=== PATIENT | female | born 1960 | race Caucasian/White ===

== ENCOUNTER 2023-09-15 16:37 | Inpatient (IN) | payer OTHER, SELFPAY ==
[2023-09-15] VITALS (7 sets, daily range): BP systolic 122–173; BP diastolic 48–87; BMI 29.9
[2023-09-15 13:45] LABS: % Basophils 0.6 % (0-2); % Eosinophils 4.3 % (0-6); % Immature Granulocytes 0.2 % (0-0.5); % Lymphocytes 36.2 % (20.5-51.1); % Monocytes 7.1 % (1.7-9.3); % Neutrophils 51.6 % (42.2-75.2); Absolute Basophils 0.1 10^3/uL (0-0.2); Absolute Eosinophils 0.4 10^3/uL (0-0.7); Absolute Lymphocytes 3.5 10^3/uL (1.2-3.4); Absolute Monocytes 0.7 10^3/uL (0.1-0.6); Absolute Neutrophils 4.9 10^3/uL (1.4-6.5); Hematocrit 39.7 % (37.0-47.0); Hemoglobin 13.3 g/dL (12.0-16.0); Mean Corp Hgb Conc. 33.5 g/dL (33.0-37.0); Mean Corpuscular Hgb 29.8 pg (27.0-31.0); Mean Platelet Volume 9.4 fL (7.4-10.4); Nucleated Red Blood Cells % 0 %; Platelet Count 349 10^3/uL (130-400); Red Blood Cell Count 4.46 10^6/uL (4.20-5.40); Red Cell Dist. Width 13.5 % (11.5-14.5); White Blood Cell Count 9.5 10^3/uL (4.8-10.8)
[2023-09-15 13:55] LABS: ALT (SGPT) 20 U/L (0-35); AST (SGOT) 17 U/L (14-36); Albumin 3.7 g/dl (3.5-5.0); Alkaline Phosphatase 96 U/L (38-126); Blood Urea Nitrogen 57 mg/dl (7-17); Calcium 9.9 mg/dl (8.4-10.2); Carbon Dioxide 16 mmol/L (22-30); Chloride 110 mmol/L (98-107); Glucose 178 mg/dl (70-99); Potassium 4.4 mmol/L (3.5-5.1); Sodium 140 mmol/L (135-145); Total Bilirubin 0.7 mg/dl (0.2-1.3); Total Protein 6.5 g/dl (6.3-8.2); eGFR 17.04
[2023-09-15] MEDS: ATIVAN 1 MG IV (13:59)
--- NOTE | 2023-09-15 14:12 | ED.GENMED ---
History of Present Illness
<Iveth Hinton PA-C - Last Filed: 09/27/23 16:34>
General
Chief Complaint: Weakness
Source: patient
Exam Limitations: clinical condition
Time Seen by Provider: 09/15/23 13:24
Nursing documentation reviewed up to this point in time: agreed with
Travel History
Have you had any contact with someone who has COVID-19?: No
Do you have any symptoms of coronavirus? Fever > 100 degrees, chills, cough, shortness of breath, sore throat, loss of taste or smell, muscle aches, or headache?: No
History of Present Illness
History of Present Illness:
Patient is a 63 y.o female with history CVA presenting via ems from home. She is presenting due to feeling 'pulsations' throughout her entire body and believes that she is having a stroke. She called EMS so she could be treated with tPA. Patient is
extremely agitated upon arrival. She denies any focal weakness, headache, changes in speech or vision.
She did have a CVA in the past year and was treated with tPA. She does have some weakness on left side from this previous CVA which is unchanged today.
History and exam very limited due to mental status.
Past History
<Iveth Hinton PA-C - Last Filed: 09/27/23 16:34>
Past History
ED Past Medical History: CVA (Right pontine July 2022), HTN, IDDM and Other (Endometriosis)
ED Past Surgical History: Gynecological (Several laparoscopies for endometriosis, hysterectomy has 1 ovary remaining.)
Social History
Tobacco: Smoker
Alcohol: Former
Drug: None
Personal: Partner
Living: with family
Employment: Not employed
Family History
Family History: Other (Reviewed and noncontributory)
Phy Exam
<Iveth Hinton PA-C - Last Filed: 09/27/23 16:34>
Physical Exam
Physical Exam:
General: Anxious and agitated, non-toxic
HEENT: Pupils equal round and reactive to light bilaterally, protecting airway
Neck: appears supple
CV: No evidence of cyanosis
Resp: No accessory muscle use
Abd: Non-distended
Extremities: No deformities, moving all extremities spontaneously
Neuro: alert, speech normal without any noticeable slurring, no focal weakness
Psych: Appears very anxious and agitated
Skin: Intact
Course
<Iveth Hinton PA-C - Last Filed: 09/27/23 16:34>
Orders/Labs/Results
Orders:
Orders
09/15/23 13:33
CMP [Comprehensive Metabolic Panel] Urgent
Complete Blood Count/With Diff Urgent
TSH Reflex To Free T4 Urgent
Comment: ADD ON
09/15/23 13:49
Lorazepam [Ativan] 1 mg IV NOW STA
09/15/23 13:50
Electrocardiogram (*1) Urgent
Reason for Study: Fatigue / Weakness
CT Head W/o Iv Contrast Urgent
Comment:
Reason For Exam: weakness prior right pontomedullary infarct
EKG- Treatment ONCE
09/15/23 15:05
0.9% Sodium Chloride 1000 ml [Nss] 1,000 ml IV BOLUS
09/15/23 15:52
Add On- LAB Urgent
Tests Added?: TSH w/ reflex to T4
09/15/23 16:13
Admit/Transfer Patient As Directed
Co-Sign Provider:
Level of Care: Inpatient admission
Assign to:: Medical/Surgical
Physician / Group: braeden gould
Diagnosis: metabolic encephalopathy
Reason for Hospitalization: metabolic encephalopathy
Expected length of stay greater than two midnights?: Yes
ELOS- Estimated Length of Stay in days: 3
I certify the patient meets the requirements for IP care: Yes
09/15/23 16:15
Code Status As Directed
Resuscitation Status: Full Code
09/15/23 16:26
Abdomen/Pelvis wo Contrast CT [CT Abd/pelvis Wo Iv Cont] Urgent
Comment: no IV or oral
Reason For Exam: PAULO, weakness and pain
09/15/23 17:11
0.45% Sodium Chloride 1000 ml [0.45%NaCl] 1,000 ml Sodium Bicarbonate 75 meq IV 100 mls/hr
Acetaminophen [Tylenol] 650 mg PO Q4HPRN PRN
Dextrose 50%-Water [Dextrose 50% Syringe] 12.5 grams IV [id number] PRN
Glucagon [GlucaGen] 1 mg IM PRN PRN
Insulin Aspart Corrective Low [Novolog Flexpen-Low Resistance] See Protocol SC AC
Nicotine [Nicoderm Transdermal] 21 mg TRANSDERM DAILY
09/15/23 17:11
Activity As Directed
Activity Level: As Tolerated
Bedside Glucose Monitoring As Directed
Frequency: AC&HS
Comment: Change to q6h if pt on TPN, tube feeding or not eating
Vital Signs As Directed
Frequency: Per unit guidelines
DX Deep Vein Thrombosis Video Routine
09/15/23 17:35
COVID-19 Antigen Routine
Source: Nasal Swab
Influenza A+B Rapid Molecular Routine
NORMA Source: Nasal Swab
Specimen Description:
09/15/23 18:30
Drug Screen, Urine [Urine Drug Abuse Screen] Urgent
Date Specimen was Collected: 09/15/23
Time Specimen was Collected: 18:29
Urinalysis Reflex To Culture Routine
Date Specimen was Collected: 09/15/23
Time Specimen was Collected: 18:29
Urine Creatinine Routine
Date Specimen was Collected: 09/15/23
Time Specimen was Collected: 18:29
Urine Sodium Routine
Date Specimen was Collected: 09/15/23
Time Specimen was Collected: 18:29
09/15/23 20:00
Heparin 5,000 units SC Q12
09/15/23 22:00
Atorvastatin [Lipitor] 40 mg PO HS
Ropinirole [Requip] 0.25 mg PO TID
09/16/23 Breakfast
NPO
Allow oral meds: No
Allow clear liquids: No
Occupational Therapy Consult [Ot Eval And Treat] IN AM
Physical Therapy Consult [Pt Eval And Treat] IN AM
Activity Level: As Tolerated
09/16/23 06:28
Basic Metabolic Panel IN AM
Complete Blood Count/No Diff IN AM
Glycohemoglobin (HgbA1c) IN AM
09/16/23 08:00
Amlodipine [Norvasc] 5 mg PO DAILY
Escitalopram Oxalate [Lexapro] 20 mg PO DAILY
09/17/23 07:22
Basic Metabolic Panel IN AM
Complete Blood Count/No Diff IN AM
09/18/23 07:21
Basic Metabolic Panel IN AM
09/19/23 05:54
Basic Metabolic Panel IN AM
09/20/23 06:10
Basic Metabolic Panel IN AM
Abnormal Lab Results
09/15/23
13:33
Absolute Lymphs (auto) 3.5 H 10^3/uL
(1.2-3.4)
Absolute Monos (auto) 0.7 H 10^3/uL
(0.1-0.6)
Chloride 110 H mmol/L
(98-107)
Carbon Dioxide 16 L mmol/L
(22-30)
BUN 57 H mg/dl
(7-17)
Creatinine 3.0 H mg/dL
(0.6-1.0)
Glucose 178 H mg/dl
(70-99)
09/15/23 13:33
09/15/23 13:33
Vital Signs
Initial and Last Documented VS:
Initial Vital Signs
BP
122/78
09/15/23 13:24
Last Documented Vital Signs
Temp Pulse Resp BP Pulse Ox
97.6 F 69 20 167/95 100
09/20/23 07:25 09/20/23 07:46 09/20/23 07:25 09/20/23 07:46 09/20/23 07:25
<Sherif Coyne, DO - Last Filed: 09/15/23 15:54>
Orders/Labs/Results
Orders:
Orders
09/15/23 13:33
CMP [Comprehensive Metabolic Panel] Urgent
Complete Blood Count/With Diff Urgent
TSH Reflex To Free T4 Urgent
Comment: ADD ON
09/15/23 13:49
Lorazepam [Ativan] 1 mg IV NOW STA
09/15/23 13:50
Electrocardiogram (*1) Urgent
Reason for Study: Fatigue / Weakness
CT Head W/o Iv Contrast Urgent
Comment:
Reason For Exam: weakness prior right pontomedullary infarct
EKG- Treatment ONCE
09/15/23 15:05
0.9% Sodium Chloride 1000 ml [Nss] 1,000 ml IV BOLUS
09/15/23 15:52
Add On- LAB Urgent
Tests Added?: TSH w/ reflex to T4
09/15/23 16:13
Admit/Transfer Patient As Directed
Co-Sign Provider:
Level of Care: Inpatient admission
Assign to:: Medical/Surgical
Physician / Group: braeden gould
Diagnosis: metabolic encephalopathy
Reason for Hospitalization: metabolic encephalopathy
Expected length of stay greater than two midnights?: Yes
ELOS- Estimated Length of Stay in days: 3
I certify the patient meets the requirements for IP care: Yes
09/15/23 16:15
Code Status As Directed
Resuscitation Status: Full Code
09/15/23 16:26
Abdomen/Pelvis wo Contrast CT [CT Abd/pelvis Wo Iv Cont] Urgent
Comment: no IV or oral
Reason For Exam: PAULO, weakness and pain
09/15/23 17:11
0.45% Sodium Chloride 1000 ml [0.45%NaCl] 1,000 ml Sodium Bicarbonate 75 meq IV 100 mls/hr
Acetaminophen [Tylenol] 650 mg PO Q4HPRN PRN
Dextrose 50%-Water [Dextrose 50% Syringe] 12.5 grams IV [id number] PRN
Glucagon [GlucaGen] 1 mg IM PRN PRN
Insulin Aspart Corrective Low [Novolog Flexpen-Low Resistance] See Protocol SC AC
Nicotine [Nicoderm Transdermal] 21 mg TRANSDERM DAILY
09/15/23 17:11
Activity As Directed
Activity Level: As Tolerated
Bedside Glucose Monitoring As Directed
Frequency: AC&HS
Comment: Change to q6h if pt on TPN, tube feeding or not eating
Vital Signs As Directed
Frequency: Per unit guidelines
DX Deep Vein Thrombosis Video Routine
09/15/23 17:35
COVID-19 Antigen Routine
Source: Nasal Swab
Influenza A+B Rapid Molecular Routine
NORMA Source: Nasal Swab
Specimen Description:
09/15/23 18:30
Drug Screen, Urine [Urine Drug Abuse Screen] Urgent
Date Specimen was Collected: 09/15/23
Time Specimen was Collected: 18:29
Urinalysis Reflex To Culture Routine
Date Specimen was Collected: 09/15/23
Time Specimen was Collected: 18:29
Urine Creatinine Routine
Date Specimen was Collected: 09/15/23
Time Specimen was Collected: 18:29
Urine Sodium Routine
Date Specimen was Collected: 09/15/23
Time Specimen was Collected: 18:29
09/15/23 20:00
Heparin 5,000 units SC Q12
09/15/23 22:00
Atorvastatin [Lipitor] 40 mg PO HS
Ropinirole [Requip] 0.25 mg PO TID
09/16/23 Breakfast
NPO
Allow oral meds: No
Allow clear liquids: No
Occupational Therapy Consult [Ot Eval And Treat] IN AM
Physical Therapy Consult [Pt Eval And Treat] IN AM
Activity Level: As Tolerated
09/16/23 06:28
Basic Metabolic Panel IN AM
Complete Blood Count/No Diff IN AM
Glycohemoglobin (HgbA1c) IN AM
09/16/23 08:00
Amlodipine [Norvasc] 5 mg PO DAILY
Escitalopram Oxalate [Lexapro] 20 mg PO DAILY
09/17/23 07:22
Basic Metabolic Panel IN AM
Complete Blood Count/No Diff IN AM
09/18/23 07:21
Basic Metabolic Panel IN AM
09/19/23 05:54
Basic Metabolic Panel IN AM
09/20/23 06:10
Basic Metabolic Panel IN AM
Abnormal Lab Results
09/15/23
13:33
Absolute Lymphs (auto) 3.5 H 10^3/uL
(1.2-3.4)
Absolute Monos (auto) 0.7 H 10^3/uL
(0.1-0.6)
Chloride 110 H mmol/L
(98-107)
Carbon Dioxide 16 L mmol/L
(22-30)
BUN 57 H mg/dl
(7-17)
Creatinine 3.0 H mg/dL
(0.6-1.0)
Glucose 178 H mg/dl
(70-99)
09/15/23 13:33
09/15/23 13:33
Vital Signs
Initial and Last Documented VS:
Initial Vital Signs
BP
122/78
09/15/23 13:24
Last Documented Vital Signs
Temp Pulse Resp BP Pulse Ox
97.6 F 69 20 167/95 100
09/20/23 07:25 09/20/23 07:46 09/20/23 07:25 09/20/23 07:46 09/20/23 07:25
<Iveth Hinton PA-C - Last Filed: 09/27/23 16:34>
MDM/Problems Addressed
Differential Diagnosis Includes:
UTI, toxic encephalopathy, polypharmacy
MDM/Problems Addressed:
Patient is a 63 year old female presenting via ems with 'pulsations' throughout her body and concern that she is having a stroke. No focal weakness, changes in vision, speech, or headache. She is very agitated and anxious upon arrival. History and
physical difficult to obtain due to mental status. Her vital signs are stable. Physical exam as documented above. Given difficulty with exam - will check basic labs, UA, CT head.
CT shows no evidence of acute abnormality. Labs show new onset renal failure and acidosis. Will start IVF and admit to hospitalist for further management.
Chronic conditions affecting care:
previous CVA, HTN, DM
Acute Exacerbation and/or Progression of Chronic Illness:
N/A
<Iveth Hinton PA-C - Last Filed: 09/27/23 16:34>
*Radiology
Radiology exam reviewed: radiology read reviewed
*Pulse Oximetry
Patient hypoxic: no
*Program Manager Rn Interpretation
Rate: Program Manager Rn- N/A
*Critical Care Note
Total Time (30-74mins, 75-104mins- exclusive of procedures): Not Applicable
Data Reviewed
Review of Other/Old Records Reveals: Labs, Records and Discharge Summary
Source: records
<Iveth Hinton PA-C - Last Filed: 09/27/23 16:34>
Patient Management
Discussion with other providers: Hospitalist
ED Attending Note
<Iveth Hinton PA-C - Last Filed: 09/27/23 16:34>
-
Portions of this chart may have been created with voice recognition software.� Occasional wrong word or��sound alike� substitutions may have occurred due to the inherent limitations of voice recognition software.
<Sherif Coyne DO - Last Filed: 09/15/23 15:54>
ED Attending Note
Patient seen and examined by attending physician: Yes
I performed the substantive portion of visit, reviewed & personally made and approve the management plan that is documented in note by myself or GINA.: Yes
ED Attending Note:
Patient is a 63-year-old female with a history of CVA as well as diabetes and anxiety and depression who presents to the emergency department feeling pulsations going through body and wanting tPA to be given for her impending stroke. Patient denies
focal weakness or change in vision or speech. Patient is a difficult assessment doing to her mental status. Patient keeps insisting that she is having a stroke and wanting tPA. Patient in the past year did have tPA given for CVA. Patient has
persistent cyst from this with left-sided weakness from that. Patient neurologically is unchanged. Patient's labs show new onset of renal failure. Additionally patient appears acidotic by lab. Patiently given fluids and admitted. Patient
required Ativan for thorough evaluation.
Discharge Plan
Departure
Patient Disposition: Admit
Date of Disposition: 09/15/23
Time of Disposition: 15:42
Presentation/result/management discussed w/ accepting MD/DO: Hospitalist
Discharge Problem:
PAULO (acute kidney injury), Altered mental status
Interventions
Interventions:
*Risk Screen - Suicide Last Done: 09/15/23 18:06
*General Assessment Last Done: 09/15/23 13:27
*Neglect/Abuse Screening Last Done: 09/15/23 13:27
ED- Fall Risk Assessment Last Done: 09/15/23 17:06
*ED COVID-19 Vaccine History Last Done: 09/15/23 18:06
*Nursing Disposition Last Done: 09/15/23 17:06
ED- Cardiac Assessment Last Done: 09/15/23 13:30
ED- Neurological Assessment Last Done: 09/15/23 13:30
ED- Pulmonary Assessment Last Done: 09/15/23 13:30
Discharge Date and Time
Discharge Date/Time: 09/15/23 17:10
[2023-09-15] MEDS: NSS 1000 IV (15:13)
--- NOTE | 2023-09-15 15:53 | HPS.HSE ---
Addendum entered and electronically signed by Brenda Amanda MD 09/15/23 16:36:
I saw and examined the patient.
The BODY SHOP FLOORPERSON's note was reviewed and I agree with the note.
Comment:
Ms. Gertrudis Gonzales is a 63 yo woman with hx acute right pontine ischemic stroke 08/18 with residual left sided weakness, HTN, IDDM who presents to the ER agitated. Patient is currently sedated after receiving 1mg IV ativan and not able to provide
further history. 's cell phone number goes to [employer]. Patient was brought in by EMS who were called because patient stated she was very weak and had pain all over. Triage VS: P 84, RR 20, BP 122/78, SpO2 98%. Labs with WBC 9.5, Hg
13.3, Na 140, K+ 4.4, CO2 16, Cr 3.0, Glucose 178. Head CT without acute event. Per [employer] ABATEMENT WORKER, patient was seen walking around her room in the ER and banged on her door. She then stated she was too weak to get back to bed. She was becoming
increasingly agitated, yelling at staff. She was given 1mg IV Ativan and is now sleeping. Patient heavily sedated and difficult to arouse in the ER. Tried calling but phone number goes to busy signal.
Unclear etiology of initial presentation of pain, weakness and acute renal failure. Will check for flu and covid. Will obtain non con CT A/P. Awaiting UA, UTox, urine studies. For ARF will give IVF with sodium bicarb, hold [employer] lisinopril and
metformin.
Regarding altered mentation, this is in setting of 1mg IV ativan. Will keep NPO until ativan wears off. Will hold home sedating medications. Admit with neuro checks.
Hep subQ for DVT PPx
FULL CODE
Original Note:
Family Physician
-
Family Physician: NOT KNOW UNKNOWN - PT DOES
Chief Complaint
-
agitated
confusion
History of Present Illness
�63 y.o female with history CVA, anxiety, htn, DM presented to us with confusion. patient is sleeping, not able to answer appropriately. attempted to reach , number not going through. ROS limited. as per [employer] ABATEMENT WORKER, stated her legs are very weak.
she was yelling and screaming
CT head negative. noted elevated cr in ER. giving normal saline. admitting for further mangament.
Medical History
Past Medical History
Past Medical History: Reports Other
Additional Past Medical History:
Depression anxiety
CVA
Hypertension
Type 2 diabetes
Endometriosis
Past Surgical History: Reports Other
Additional Past Surgical History:
Hysterectomy
Social History
Unable to obtain full social history at this time due to: Acuity
Family History
Family History: Not pertinent
Allergies / Home Medications
Allergies reflects when Allergies were last updated in [employer].
Home Medications with original date entered in [employer]
Allergy/Medication List:
Allergies
Allergy/AdvReac Type Severity Reaction Status Date / Time
'all antibiotics' Allergy Unknown Uncoded 01/31/23 08:44
Home Medications
acetaminophen 325 mg tablet 650 mg PO Q4HPRN PRN KRUEGER, mild pain, or temp >100.4F #0 tabs 08/06/22
atorvastatin 40 mg tablet 40 mg PO HS #30 tabs 08/26/22
escitalopram oxalate 20 mg tablet 20 mg PO DAILY #30 tabs 08/26/22
lisinopril 20 mg tablet 20 mg PO DAILY #30 tabs 08/26/22
metformin 850 mg tablet 850 mg PO BID AT 0800,1700 #60 tabs 08/26/22
quetiapine 25 mg tablet 50 mg PO HS #60 tabs 08/26/22
ropinirole 0.25 mg tablet 0.25 mg PO TID #90 tabs 08/26/22
tizanidine 2 mg tablet 2 mg PO BIDPRN PRN MUSCLE SPASMS #90 tabs 08/26/22
atorvastatin 80 mg tablet 80 mg PO DAILY #30 tabs 01/31/23
clopidogrel 75 mg tablet (Plavix) 75 mg PO DAILY 21 days #21 tabs 01/31/23
Review of Systems
-
Unable to obtain full review of systems at this time due to: Acuity
Physical Exam
Vital Signs
Vital Signs
Pulse Resp BP Pulse Ox
84 20 122/78 98
09/15/23 13:26 09/15/23 13:26 09/15/23 13:26 09/15/23 13:30
Physical Exam
General: Well Developed, Well Nourished and No Apparent Distress
HEENT: NormoCephalic, Moist mucous membranes and Atraumatic
Respiratory: Clear
Cardiac: S1/S2 and Regular Rhythm; No Murmur or Rub
GI: Soft, Non Tender, Non Distended and Normal Bowel Sounds; No Organomegaly
Rectal: Deferred by Provider
Musculoskeletal: No Clubbing, No Cyanosis and No Edema
Skin: No Rash
Neuro: Nonfocal/grossly intact
Laboratory Results
-
09/15/23 13:33
09/15/23 13:33
Laboratory Results
Total Bilirubin 0.7 mg/dl (0.2-1.3) 09/15/23 13:33
AST 17 U/L (14-36) 09/15/23 13:33
ALT 20 U/L (0-35) 09/15/23 13:33
Alkaline Phosphatase 96 U/L (38-126) 09/15/23 13:33
Data Reviewed
-
CT Scan: Report Reviewed by me
Lab Data: Labs Reviewed by me
Impression/Plan
-
# Metabolic encephalopathy unclear cause
-Head CT No evidence of acute intracranial abnormality.
-EKG with normal sinus rhythm, possible left atrial enlargement
-Obtain urinalysis
-Drug screen
#LE weakness and pain
-will obtain arterial US
-PT/OT consult
# Acute kidney injury/metabolic acidosis likely from dehydration
-Creatinine 3.0, BUN 57, CO2 16
-Normal saline continued
-Monitor BMP in a.m.
-obtain CT of abdomen pelvis to r/o kidney stones
#DM2
-Cont SSI/ AccuCheck
-hold metformin due to PAULO
#Essential HTN
-Blood pressure stable
-Hold lisinopril due to PAULO
#Tobacco use disorder
-Nicotine patch
# DVT prophylaxis
-Heparin subcu
# CODE STATUS
-Full code
--- NOTE | 2023-09-15 16:27 | PHANOTE ---
Med Rec note- unable to speak to patient about meds patient keeps falling asleep , patient ecw and pharmacy match except Novolin 70/30
[2023-09-15 18:04] LABS: Glucose - Point of Care 120 mg/dl (70-99)
[2023-09-15 18:14] LABS: COVID-19 Antigen Negative (Negative)
--- NOTE | 2023-09-15 18:15 | PTCARENOTE ---
Received pt from ER. Pt somnolent, responds to pain,occasionally opens eyes, unable to answer admissions questions, unable to complete swallow screen. 99% on RA, Respirations however running 10-12 BPM, MD aware, cont pulse ox ordered. other VSS. Pt
bladder scanned per MD order 352ml, Orders for straight cath, straight cath completed 375ml of cloudy, foul smelling urine obtained, Pt woke up briefly during straight cath, restless then fell back asleep. Left foot slightly mottled, cool to touch
weak pulse but palpable, MD aware, REINA studies ordered, Pt unable to be oriented to room given current status, received 1mg of ativan in ER, HOB elevated, call harrell within reach, plan of care ongoing.
[2023-09-15] MEDS: SODIUM BICARBONATE 1075 MEQ IV (18:35)
[2023-09-15] MEDS: NICODERM TRANSDERMAL 21 MG TRANSDERM (18:38)
[2023-09-15 19:05] LABS: Urine Albumin Trace (Neg - Trace); Urine Bilirubin Negative (Negative); Urine Character Slightly Cloudy (Clear); Urine Color Yellow; Urine Glucose Negative (Negative); Urine Ketone Negative (Negative); Urine Leukocyte 1+ (Negative); Urine Nitrite Positive (Negative); Urine Occult Blood Negative (Negative); Urine Urobilinogen Negative (Neg - 1+)
[2023-09-15 19:16] LABS: Urine Bacteria Many (Negative); Urine Red Blood Cell None Seen /HPF (0-2)
[2023-09-15 19:22] LABS: Urine Sodium 48 mmol/L (30-90)
[2023-09-15 19:25] LABS: Amphetamines Positive (Negative); Barbiturates Negative (Negative); Benzodiazepines Negative (Negative); Buprenorphine Negative (Negative); Cocaine Negative (Negative); Marijuana Negative (Negative); Methadone Negative (Negative); Methamphetamines Positive (Negative); Opiates Negative (Negative); Phencyclidine Negative (Negative); Tricyclic Antidepressants Negative (Negative)
[2023-09-15 19:38] LABS: Fentanyl, Urine Negative (Negative)
[2023-09-15] MEDS: HEPARIN 5000 UNITS SC (19:52)
[2023-09-15] MEDS: REQUIP PO (22:27)
[2023-09-15] MEDS: LIPITOR PO (22:27)
--- NOTE | 2023-09-15 22:42 | PTCARENOTE ---
Patient received very drowsy, awaken with tactile stimuli. Oriented to person and place. Bed alarm on. Continuous pulse ox on, saturating 97-100% on room air. Patient NPO as ordered. Call harrell in reach.
[2023-09-16] MEDS: SEROQUEL 50 MG PO (00:18)
[2023-09-16 00:24] LABS: Glucose - Point of Care 151 mg/dl (70-99)
--- NOTE | 2023-09-16 00:43 | PTCARENOTE ---
Patient awake and very combative. We attempted to get her out of bed to bedside commode, and she screams, will not put weight on her left foot, says its very painful ,she also won't let us touch her left arm due to pain. She has a left sided
weakness due to a past stroke. She is hallucinating, seeing people who are not in the room and yelling out. She is attempting to get out of bed by herself, we got an order for a sushma chair and had her out at the nurses station, she yelled and
screamed and we had to put her back in her room . At present she is in her room in the geetha chair, yelling and screaming. Her room is across from the nurses station and we are able to see her. We did a swallow evaluation and she passed, she was
able to take her pills and drink some water.
--- NOTE | 2023-09-16 03:00 | PTCARENOTE ---
Patient presently sleeping in sushma chair. She is tolerating oral intake.
--- NOTE | 2023-09-16 04:29 | DOWNTIME ---
There was a [employer] Downtime on 09/16/2023 from 0111 to 09/16/2023 at 0405. Downtime documentation of patient's care, including medication administrations, has been reconciled in the electronic record per guidelines. Refer to the
patient's paper chart under the miscellaneous tab to see printed paper medication records and downtime forms.
[2023-09-16] MEDS: SODIUM BICARBONATE 1075 MEQ IV (04:45)
--- NOTE | 2023-09-16 05:21 | PTCARENOTE ---
Patient presently back in bed with 4 side rails up and bed alarm on. She was incontinent of a small amount of urine. Bladder scanned for 546cc and straight cathed for 525. Patient tolerated straight cath.
[2023-09-16 07:20] LABS: Glucose - Point of Care 104 mg/dl (70-99)
[2023-09-16 07:29] LABS: Hematocrit 38.4 % (37.0-47.0); Hemoglobin 12.7 g/dL (12.0-16.0); Mean Corp Hgb Conc. 33.1 g/dL (33.0-37.0); Mean Corpuscular Hgb 29.5 pg (27.0-31.0); Mean Corpuscular Volume 89.1 fL (81.0-99.0); Mean Platelet Volume 9.8 fL (7.4-10.4); Platelet Count 328 10^3/uL (130-400); Red Blood Cell Count 4.31 10^6/uL (4.20-5.40); Red Cell Dist. Width 13.3 % (11.5-14.5); White Blood Cell Count 9.7 10^3/uL (4.8-10.8)
[2023-09-16] MEDS: NOVOLOG FLEXPEN-LOW RESISTANCE SC ×3 (07:30→16:48)
[2023-09-16 07:35] VITALS: BP 178/75
[2023-09-16 08:04] LABS: Blood Urea Nitrogen 51 mg/dl (7-17); Calcium 9.5 mg/dl (8.4-10.2); Carbon Dioxide 15 mmol/L (22-30); Chloride 114 mmol/L (98-107); Estimated Creatinine Clearance 22 ml/min; Glucose 106 mg/dl (70-99); Potassium 4.6 mmol/L (3.5-5.1); Sodium 140 mmol/L (135-145); eGFR 20.24
[2023-09-16 08:59] LABS: Glycohemoglobin (HgbA1c) 7.2 % (4.0-5.6)
[2023-09-16] MEDS: NICODERM TRANSDERMAL TRANSDERM ×2 (09:46→09:58)
[2023-09-16] MEDS: REQUIP 0.25 MG PO ×2 (09:47→16:42)
[2023-09-16] MEDS: LEXAPRO 20 MG PO (09:47)
[2023-09-16] MEDS: NORVASC 5 MG PO (09:47)
[2023-09-16] MEDS: HEPARIN 5000 UNITS SC (09:48)
--- NOTE | 2023-09-16 10:26 | W.PN.HOSP.TC ---
Addendum entered and electronically signed by Brenda Amanda MD 09/16/23 18:26:
hold COAL CARRIER baclofen given kidney disease
Original Note:
Today's Communication/Plan
-
vascular surgery consult
NPO
renal consult
sodium bicarb
Assessment / Plan
Assessment / Plan
Ms. Gertrudis Gonzales is a 63 yo woman with hx acute right pontine ischemic stroke 08/18 with residual left sided weakness, HTN, IDDM who presents to the ER agitated.� Patient is currently sedated after receiving 1mg IV ativan and not able to provide
further history.� 's cell phone number goes to busy signal.� Patient was brought in by EMS who were called because patient stated she was very weak and had pain all over.� Triage VS: P 84, RR 20, BP 122/78, SpO2 98%.� Labs with WBC 9.5, Hg
13.3, Na 140, K+ 4.4, CO2 16, Cr 3.0, Glucose 178.� Head CT without acute event.� Per CONTRACT ADMINISTRATION SPECIALIST, patient was seen walking around her room in the ER and banged on her door.� She then stated she was too weak to get back to bed.� She was becoming
increasingly agitated, yelling at staff.� She was given 1mg IV Ativan and is now sleeping.� Patient heavily sedated and difficult to arouse in the ER.� Tried calling but phone number goes to busy signal.�
CT A/P
IMPRESSION:
Mild fatty infiltration of liver.
Bilateral adrenal benign adenomas.
No renal or ureteral calculus. No obstructive uropathy. Small bilateral renal cysts, with milk of calcium versus subtle calcification along the posterior cyst margin.
Moderate colonic fecal burden.
No urinary bladder calculus. No bladder wall thickening. Minor soft tissue stranding at the anterior superior bladder margin; cannot exclude minor inflammatory changes, possibly associated with a subtle urachus remnant.
Ischemic Foot
-patient with some discoloration on admission, palpable pulses and arterial US ordered
-this morning skin with significantly increased discoloration
-will make NPO, vascular surgery consult and renal consult given ARF; vascular surgery on way to see patient
-low dose IV dilaudid PRN pain
Acute renal failure
-CT A/P without hydro
-sodium bicarb
-renal consult
-patient requiring intermittent straight cath; may need josé
Meth Intoxication
-explains initial presentation and current confusion
#DM2
-Cont SSI/ AccuCheck
-hold metformin due to PAULO
#Essential HTN
-Blood pressure stable
-Hold lisinopril due to PAULO
#Tobacco use disorder
-Nicotine patch
# DVT prophylaxis
-Heparin subcu
# CODE STATUS
-Full code
Anticipated Discharge: > 48 hours
Subjective/Interval History
-
Date of Service: September 16, 2023
patient complains of pain all over also in left foot
Objective Data
-
Labs:
Laboratory Results
09/16/23
06:28
WBC 9.7
Hgb 12.7
Hct 38.4
Plt Count 328
Sodium 140
Potassium 4.6
Chloride 114 H
Carbon Dioxide 15 L
BUN 51 H
Creatinine 2.6 H
Glucose 106 H
Calcium 9.5
Vital Signs:
Vital Signs
Temp Pulse Resp BP Pulse Ox
97.6 F 80 18 120/83 92
09/16/23 07:35 09/16/23 09:47 09/16/23 07:35 09/16/23 09:47 09/16/23 07:35
I&O
09/15/23 09/16/23 09/17/23
06:59 06:59 06:59
Intake Total 1240 / 1240
Output Total 900 / 900
Balance 340 / 340
Review of Systems
-
History Source: Patient
All other systems: Reviewed and negative
Physical Exam
-
General: No Apparent Distress
HEENT: PERRLA
Respiratory: Clear to Auscultation
Cardiac: Regular Rhythm and S1/S2
GI: Soft and Nontender
Musculoskeletal: Other (LLE cool to touch, will not let me examine her for pulses )
Skin: Warm and Dry; Negative Rash
Neuro: Awake, Alert and Other (patient a bit tangential, not fully making sense in speech )
Psych: Confused; Negative Intact Judgement/Insight
Data Reviewed
-
Diagnostic Radiology: Report Reviewed by me
Labs: Labs Reviewed by me
[2023-09-16] MEDS: LOW STRENGTH ASPIRIN 81 MG PO (11:00)
[2023-09-16] MEDS: SODIUM BICARBONATE 1150 MEQ IV ×2 (11:00→20:53)
--- NOTE | 2023-09-16 11:43 | CON.VAS ---
Addendum entered and electronically signed by Faustino Hansen III, MD 09/16/23 14:25:
This patient was seen and examined with JOANNE Yoder. I agree with the history and physical exam as well as the assessment and plan. I have the following additions:
63-year-old female
Called for cool discolored left foot and concern for acute limb ischemia
Additional details according to associated note
Recent Botox injections 2 weeks ago
On physical examination she has some purple discoloration of her foot and it is cool compared to the contralateral side
Easily palpable DP and PT pulses bilaterally
She is tender to touch over the calf and ankle and foot on the left
Will obtain lower extremity arterial studies and make additional recommendations based off of these.
Based on her physical exam findings I do not believe this is acute limb ischemia.
Signed:
Faustino Hansen III, MD
[facility] Vascular Surgery
[phone] (vrwm)
Original Note:
Consultation
Consultation Request
Date/Time Consultation Performed: 09/16/23 1045
Requesting Provider: Brenda Amanda MD
Performing Provider: Rossana Pierson NP-C for Faustino Hansen III, MD
Reason for Consultation: Left lower extremity pallor and pain
Medical History
-
Chief Complaint: Left-sided pain
History of Present Illness:
This is a 63-year-old female patient with significant past medical history of right pontine stroke, hypertension, diabetes, and endometriosis who reported to ED on 09/15/2023 via EMS with reports of generalized weakness. HPI is contributed by
patient's Tuan who is at bedside and chart review as patient is currently confused. Patient is oriented to self, time, and place but remains confused and agitated; she repeatedly curses at staff and indicates by yelling that she believes
she is having an active stroke and wants tPA. Patient was admitted to the hospital for metabolic encephalopathy of unclear source, of note UDS positive for methamphetamines in ED, and PAULO with creatinine at 3.0. Patient stated worsening left foot
pain with accompanying pallor and coolness prompting vascular consultation. Per patient and spouse she received Botox injections roughly 2 weeks ago at her left upper extremity and left lower extremity specifically at the calf and foot region for
chronic pain treatment. Following her Botox treatment on roughly 09/08 she noted an acute worsening of her chronic left foot, calf, and arm pain. She does endorse receiving Botox injections before without worsening in pain. She decided to seek
evaluation yesterday when pain became too burdensome and she could no longer walk. She believes her pain is from an impending stroke. Does endorse history of smoking, denies signs and symptoms of claudication or rest pain. Denies previous history
of vascular intervention. Reports left foot and calf are painful to touch and cannot tolerate a warm blanket.
Past Medical History
Past Medical History: CVA (Mild left-sided weakness as residual, right pontine 08/18, received tPA), HTN, IDDM, Psychiatric (Depression/anxiety) and Other (Endometriosis)
Past Surgical History: Gynecological (Hysterectomy)
Social History
Tobacco: Smoker
Personal:
Living: With Family
Allergies / Home Medications
Allergy/AdvReac Type Severity Reaction Status Date / Time
'all antibiotics' Allergy Unknown Uncoded 01/31/23 08:44
Medication Instructions Recorded Confirmed Type
atorvastatin 40 mg tablet 40 mg PO HS #30 tabs 08/26/22 09/15/23 Rx
escitalopram oxalate 20 mg tablet 20 mg PO DAILY #30 tabs 08/26/22 09/15/23 Rx
lisinopril 20 mg tablet 20 mg PO DAILY #30 tabs 08/26/22 09/15/23 Rx
ropinirole 0.25 mg tablet 0.25 mg PO TID #90 tabs 08/26/22 09/15/23 Rx
tizanidine 2 mg tablet 2 mg PO BIDPRN PRN MUSCLE SPASMS 08/26/22 09/15/23 Rx
#90 tabs
amlodipine 5 mg tablet 5 mg PO DAILY 09/15/23 09/15/23 History
baclofen 10 mg tablet 10 mg PO DAILYPRN PRN spasms 09/15/23 09/15/23 History
insulin NPH-regular 70-30 U-100 15 unit SC DAILY 09/15/23 History
insulin 100 unit/mL subcutaneous
pen (Novolin 70-30 FlexPen U-100
Insulin)
metformin 500 mg tablet 500 mg PO BID 09/15/23 09/15/23 History
quetiapine 50 mg tablet (Seroquel) 50 mg PO HS 09/15/23 09/15/23 History
Review of Systems
-
Unable to obtain full review of systems at this time due to: Acuity (Patient intermittently belligerent and confused)
Constitutional: Reports No Symptoms
EENT: Reports No Symptoms
Respiratory: Reports No Symptoms
Cardiac: Reports No Symptoms
Abdomen/GI: Reports No Symptoms
: Reports No Symptoms
Musculoskeletal: Reports Muscle Pain (Left upper extremity and lower extremity pain)
Skin: Reports Other (Coolness to left foot with pallor)
Neurological: Reports Other (Residual left upper and lower extremity extremity weakness and decreased ROM following CVA. )
Physical Exam
Vital Signs
Temp Pulse Resp BP Pulse Ox
97.6 F 80 18 120/83 97
09/16/23 07:35 09/16/23 09:47 09/16/23 07:35 09/16/23 09:47 09/16/23 11:32
Lab Results
09/16/23 06:28
09/16/23 06:28
Physical Exam
General: Comfortable
HEENT: Normocephalic, Anicteric and Atraumatic
Respiratory: Non Labored Respirations
Cardiac: Negative JVD
GI: Soft, Non Tender and Non Distended
Musculoskeletal: No Edema
Skin: Other (Left foot cool with pallor)
Neuro: Awake, Alert and Other (Left upper extremity with limited range of motion, reports pain cannot fully assess keeps arm guarded and close to body, left foot with decreased flexion/extension reports baseline following stroke)
Psych: Confused and Agitated
Pulses: Bilateral Femoral: +1, Bilateral Popliteal: +1, Bilateral Dorsalis Pedis: +2 and Bilateral Posterior Tibial: +2
Assessment / Plan
-
Assessment: 63-year-old female admitted for metabolic encephalopathy and PAULO with concerns for left lower extremity peripheral artery disease/acute ischemia given evidence of intermittent pallor, coolness, and pain at left foot. However, physical
exam with +2 palpable DP/PT pulses at bilateral feet providing evidence of low suspicion for acute ischemia.
Plan:
Would obtain baseline arterial ultrasound REINA/TBI to determine any possible degree of peripheral artery disease, would not pursue CTA at this time as physical exam provides low suspicion for acute ischemia and patient currently has PAULO with
elevated creatinine
Continue aspirin and statin therapy
Provide smoking cessation education
I performed this shared service with the attending. I evaluated the patient [id number] and have entered clinical documentation as shown in the encounter note. I performed the following component(s):�history and physical exam. Note that medical
decision making is not final until attested by vascular attending.
[2023-09-16 13:09] LABS: Glucose - Point of Care 142 mg/dl (70-99)
--- NOTE | 2023-09-16 14:22 | CM ---
Alert confused patient who lives with her Tuan who lives in 2 story home with 4steps to enter and bed/bath room on first floor.
She is assisted in all activities of daily living by .Offered VN to he requested [facility]e [facility] Liaison notified via text.Contact # changed to [phone] by admissions
CAne
Never had VN/has Arias hx
Pharmacy [facility]
PCP Dr Arriola
PLAN Home with [facility] if accepted
--- NOTE | 2023-09-16 14:27 | W.CON.NEPH ---
Consultation
-
Date/Time Consultation Requested: 09/16
Date/Time Consultation Performed: 09/16 2:28PM
Requesting Provider: Brenda Amanda
Performing Provider: Rachelle Muller
Reason for Consultation: metabolic acidosis
Medical History
-
Chief Complaint: metabolic acidosis
History of Present Illness:
Ms. Gonzales is a 63YOF with PMH of HTN, T2DM, stroke who presents to the ER for agitation. History is limited today due to patient confusion. Briefly, the patient was brought in by EMS due to weakness and pain and was very agitated. She continues
to be agitated, yelling at staff during my interview. Nephrology is consulted for her acidosis. There was some concern for an ischemic foot (when I asked the patient, she states that she gets botox in her foot -- as an example of her confusion). UA
is notable for meth.
Past Medical History
Past Medical History: HTN and IDDM
Past Surgical History: Other (hysterectomy)
Social History
+ illicit drugs
unsure about alcohol and smoking
Family History
Family History: Not Pertinent
Allergies / Home Medications
Allergy/AdvReac Type Severity Reaction Status Date / Time
'all antibiotics' Allergy Unknown Uncoded 01/31/23 08:44
Medication Instructions Recorded Confirmed Type
atorvastatin 40 mg tablet 40 mg PO HS #30 tabs 08/26/22 09/15/23 Rx
escitalopram oxalate 20 mg tablet 20 mg PO DAILY #30 tabs 08/26/22 09/15/23 Rx
lisinopril 20 mg tablet 20 mg PO DAILY #30 tabs 08/26/22 09/15/23 Rx
ropinirole 0.25 mg tablet 0.25 mg PO TID #90 tabs 08/26/22 09/15/23 Rx
tizanidine 2 mg tablet 2 mg PO BIDPRN PRN MUSCLE SPASMS 08/26/22 09/15/23 Rx
#90 tabs
amlodipine 5 mg tablet 5 mg PO DAILY 09/15/23 09/15/23 History
baclofen 10 mg tablet 10 mg PO DAILYPRN PRN spasms 09/15/23 09/15/23 History
insulin NPH-regular 70-30 U-100 15 unit SC DAILY 09/15/23 History
insulin 100 unit/mL subcutaneous
pen (Novolin 70-30 FlexPen U-100
Insulin)
metformin 500 mg tablet 500 mg PO BID 09/15/23 09/15/23 History
quetiapine 50 mg tablet (Seroquel) 50 mg PO HS 09/15/23 09/15/23 History
Review of Systems
-
Unable to obtain full review of systems at this time due to: Other
History Source: Physician
All other systems: Unreviewed
Physical Exam
Vital Signs
Vital Signs
Temp Pulse Resp BP Pulse Ox
97.6 F 80 18 120/83 97
09/16/23 07:35 09/16/23 09:47 09/16/23 07:35 09/16/23 09:47 09/16/23 09:30
Lab Results
WBC 9.7 10^3/uL (4.8-10.8) 09/16/23 06:28
RBC 4.31 10^6/uL (4.20-5.40) 09/16/23 06:28
Hgb 12.7 g/dL (12.0-16.0) 09/16/23 06:28
Hct 38.4 % (37.0-47.0) 09/16/23 06:28
Plt Count 328 10^3/uL (130-400) 09/16/23 06:28
Sodium 140 mmol/L (135-145) 09/16/23 06:28
Potassium 4.6 mmol/L (3.5-5.1) 09/16/23 06:28
Chloride 114 mmol/L (98-107) H 09/16/23 06:28
Carbon Dioxide 15 mmol/L (22-30) L 09/16/23 06:28
BUN 51 mg/dl (7-17) H 09/16/23 06:28
Creatinine 2.6 mg/dL (0.6-1.0) H 09/16/23 06:28
eGFR 20.24 09/16/23 06:28
Glucose 106 mg/dl (70-99) H 09/16/23 06:28
Calcium 9.5 mg/dl (8.4-10.2) 09/16/23 06:28
Albumin 3.7 g/dl (3.5-5.0) 09/15/23 13:33
Physical Exam
General: Awake, Alert and Other (unable to assess orientation)
HEENT: PERRL and EOMI
Respiratory: Clear
Cardiac: S1/S2
Breast: Deferred by me
Abdomen: Soft, Nontender and Nondistended
Rectal: Deferred by Provider
Genito-urinary: No Costovertebral Tender
Musculoskeletal: No Edema
Skin: No Rash
Neuro: Other (unable to conduct neuro exam due to agitation)
Hematologic/Lymphatic: No Cervical Lymphadenopathy
Psych: Other (inappropriate, poor insight)
Assessment/Plan
-
Assessment:
PAULO
NAGMA
hypertension
meth intoxication
Plan:
- UA noted to have WBCs and bacteria, urine culture with e.coli, will defer abx to primary team
- PAULO improving with hydration. UA without significant blood or protein
- acidosis is NAGMA --> unclear if the patient has been having GI loss of bicarb. agree with sodium bicarbonate gtt
Data Reviewed
-
Radiology: Report Reviewed by me
Labs: Labs Reviewed by me and Discussed with Physician
Old Records: Reviewed
[2023-09-16 15:31] VITALS: BP 134/86
--- NOTE | 2023-09-16 15:34 | VNURNOTE ---
Call placed to patient's spouse to explain [facility] services. No answer, left message.
--- NOTE | 2023-09-16 15:43 | PTCARENOTE ---
1430 Received patient this am AAOx1. Pt confused and yelling out. Pt agitated intermittently. 0915 Left leg with purple discoloration an cool. Left foot and toes cyanotic and cool. Dr. Amanda saw patient. Vascular Consult ordered. IVF infusing
without difficulty. Pt tolerated diet this am. Pt off unit for U/S And REINA. Report called to 4 Victor M RN. Pt transferred to [id number].
[2023-09-16 16:47] LABS: Glucose - Point of Care 116 mg/dl (70-99)
[2023-09-16] MEDS: HEPARIN SC (20:17)
[2023-09-16] MEDS: TYLENOL 650 MG PO (20:21)
[2023-09-16 21:10] LABS: Glucose - Point of Care 118 mg/dl (70-99)
[2023-09-16] MEDS: ATARAX 25 MG PO (21:29)
[2023-09-16] MEDS: DILAUDID 0.25 MG IV (21:29)
[2023-09-16] MEDS: LIPITOR 40 MG PO (21:30)
[2023-09-16] MEDS: NEURONTIN 100 MG PO (21:30)
--- NOTE | 2023-09-16 21:30 | PTCARENOTE ---
Pt reports 10/10 pain in left hand and left foot. PRN Tylenol provided without relief. House VOCAL MUSIC INSTRUCTOR Bk Lacey notified, order for 1x IV Dilaudid 0.25 mg ordered and provided to pt.
[2023-09-16 23:08] VITALS: BP 152/73
[2023-09-17] MEDS: SODIUM BICARBONATE 1150 MEQ IV (06:32)
[2023-09-17 07:15] LABS: Glucose - Point of Care 104 mg/dl (70-99)
[2023-09-17] MEDS: NOVOLOG FLEXPEN-LOW RESISTANCE SC ×2 (07:23→16:41)
[2023-09-17 07:47] LABS: Hematocrit 34.5 % (37.0-47.0); Mean Corp Hgb Conc. 34.8 g/dL (33.0-37.0); Mean Corpuscular Hgb 29.6 pg (27.0-31.0); Mean Corpuscular Volume 85.2 fL (81.0-99.0); Mean Platelet Volume 9.7 fL (7.4-10.4); Platelet Count 309 10^3/uL (130-400); Red Blood Cell Count 4.05 10^6/uL (4.20-5.40); Red Cell Dist. Width 12.9 % (11.5-14.5); White Blood Cell Count 7.1 10^3/uL (4.8-10.8)
[2023-09-17 07:57] VITALS: BP 152/86
[2023-09-17 08:17] LABS: Blood Urea Nitrogen 46 mg/dl (7-17); Calcium 8.6 mg/dl (8.4-10.2); Carbon Dioxide 27 mmol/L (22-30); Chloride 103 mmol/L (98-107); Estimated Creatinine Clearance 24 ml/min; Glucose 100 mg/dl (70-99); Magnesium 1.8 mg/dl (1.6-2.3); Potassium 3.7 mmol/L (3.5-5.1); Sodium 136 mmol/L (135-145); eGFR 22.28
[2023-09-17] MEDS: LOW STRENGTH ASPIRIN 81 MG PO (08:21)
[2023-09-17] MEDS: LEXAPRO 20 MG PO (08:22)
[2023-09-17] MEDS: NORVASC 5 MG PO (08:22)
[2023-09-17] MEDS: HEPARIN SC (08:23)
[2023-09-17] MEDS: NICODERM TRANSDERMAL TRANSDERM (08:24)
--- NOTE | 2023-09-17 11:12 | W.PN.HOSP.TC ---
Today's Communication/Plan
-
stop sodium bicarb; starting gentle LR fluids
follow up further renal recs
PT/OT
Assessment / Plan
Assessment / Plan
Ms. Gertrudis Gonzales is a 63 yo woman with hx acute right pontine ischemic stroke 08/18 with residual left sided weakness, HTN, IDDM who presents to the ER agitated.� Patient is currently sedated after receiving 1mg IV ativan and not able to provide
further history.� 's cell phone number goes to [employer] signal.� Patient was brought in by EMS who were called because patient stated she was very weak and had pain all over.� Triage VS: P 84, RR 20, BP 122/78, SpO2 98%.� Labs with WBC 9.5, Hg
13.3, Na 140, K+ 4.4, CO2 16, Cr 3.0, Glucose 178.� Head CT without acute event.� Per PHERESIS SPECIALIST, patient was seen walking around her room in the ER and banged on her door.� She then stated she was too weak to get back to bed.� She was becoming
increasingly agitated, yelling at staff.� She was given 1mg IV Ativan and is now sleeping.� Patient heavily sedated and difficult to arouse in the ER.� Tried calling but phone number goes to busy signal.�
CT A/P
IMPRESSION:
Mild fatty infiltration of liver.
Bilateral adrenal benign adenomas.
No renal or ureteral calculus. No obstructive uropathy. Small bilateral renal cysts, with milk of calcium versus subtle calcification along the posterior cyst margin.
Moderate colonic fecal burden.
No urinary bladder calculus. No bladder wall thickening. Minor soft tissue stranding at the anterior superior bladder margin; cannot exclude minor inflammatory changes, possibly associated with a subtle urachus remnant.
LE Arterial US
IMPRESSION:
RIGHT LOWER EXTREMITY: REINA within normal limits at 1.10.� TBI mildly reduced at 0.65.� Arterial duplex examination reveals multiphasic waveforms from the common femoral artery through the popliteal artery with no focal velocity elevations to suggest
significant stenosis.� Multiphasic continuous Doppler waveforms are demonstrated in the dorsalis pedis artery and posterior tibial artery.
LEFT LOWER EXTREMITY: REINA within normal limits at 1.18.� TBI mildly reduced at 0.65.� Arterial duplex examination reveals monophasic waveforms in the common femoral artery and profunda femoral artery which may be indicative of iliac inflow disease.�
However multiphasic waveforms are demonstrated throughout the superficial femoral artery and popliteal artery.� No focal velocity elevations are identified to suggest significant stenosis.� Multiphasic continuous Doppler waveforms are demonstrated
in the dorsalis pedis artery and posterior tibial artery.
Ischemic foot ruled out - concern raised morning of 09/16 given discoloration and increased pain but US confirms no signifcant PAD
-appreciate vascular
Acute renal failure
-CT A/P without hydro
-s/p sodium bicarb
-renal consult appreciated - follow up further recs
-patient requiring intermittent straight cath; may need josé
Meth Intoxication
-explains initial presentation with agitation
#DM2
-Cont SSI/ AccuCheck
-hold metformin due to PAULO
#Essential HTN
-Blood pressure stable
-Hold lisinopril due to PAULO
Muscle spasm
-avoid DESULPHURING OPERATOR Baclofen in setting of decreased creatinine clearance
#Tobacco use disorder
-Nicotine patch
# DVT prophylaxis
-Heparin subcu
# CODE STATUS
-Full code
Anticipated Discharge: 24 - 48 hours
Subjective/Interval History
-
Date of Service: September 17, 2023
states no longer having significant pain left foot
has a headache
Objective Data
-
Labs:
Laboratory Results
09/17/23
07:22
WBC 7.1
Hgb 12.0
Hct 34.5 L
Plt Count 309
Sodium 136
Potassium 3.7
Chloride 103
Carbon Dioxide 27
BUN 46 H
Creatinine 2.4 H
Glucose 100 H
Calcium 8.6
Vital Signs:
Vital Signs
Temp Pulse Resp BP Pulse Ox
97.6 F 71 16 152/86 98
09/17/23 07:57 09/17/23 08:22 09/17/23 07:57 09/17/23 08:22 09/17/23 08:00
I&O
09/16/23 09/17/23 09/18/23
06:59 06:59 06:59
Intake Total 1240 / 1240 1250 / 1250
Output Total 900 / 900 1700 / 1700
Balance 340 / 340 -450 / -450
Review of Systems
-
History Source: Patient
All other systems: Reviewed and negative
Physical Exam
-
General: No Apparent Distress
HEENT: PERRLA
Respiratory: Clear to Auscultation
Cardiac: Regular Rhythm and S1/S2
GI: Soft and Nontender
Musculoskeletal: Other (LLE improved coloration, dp pulses present)
Skin: Warm and Dry; Negative Rash
Neuro: Awake, Alert and Other (patient a bit tangential, not fully making sense in speech )
Psych: Confused; Negative Intact Judgement/Insight
Data Reviewed
-
Diagnostic Radiology: Report Reviewed by me
Labs: Labs Reviewed by me
[2023-09-17] MEDS: LR 1000 IV (11:32)
[2023-09-17] MEDS: TYLENOL 650 MG PO (11:35)
--- NOTE | 2023-09-17 12:12 | W.PN.UPDATE ---
Update Note
Progress Note Update
urine growing ESBL but patient without dysuria and UA without elevated WBC - will not treat.
[2023-09-17 12:26] LABS: Glucose - Point of Care 245 mg/dl (70-99)
[2023-09-17] MEDS: NOVOLOG FLEXPEN-LOW RESISTANCE 2 UNITS SC (12:50)
--- NOTE | 2023-09-17 13:57 | W.PN.NEPH.PH ---
Today's Communication / Plan
-
- nephrology to sign off
Assessment/Plan
-
Assessment:
PAULO
NAGMA
hypertension
meth intoxication
Plan:
- UA noted to have WBCs and bacteria, urine culture with e.coli, will defer abx to primary team
- PAULO improving with hydration and josé catheter. UA without significant blood or protein
- acidosis resolved with bicarb gtt, transitioned to LR
Nephrology will sign off. Please call us back with any further questions
-
-
Date of Service: September 17, 2023
CC / HPI / ROS
-
Chief Complaint:
PAULO
History of Present Illness:
PAULO improving with fluids and josé
Review of Systems:
resting comfortable
excellent UOP
Labs
-
Labs:
WBC 7.1 10^3/uL (4.8-10.8) 09/17/23 07:22
RBC 4.05 10^6/uL (4.20-5.40) L 09/17/23 07:22
Hgb 12.0 g/dL (12.0-16.0) 09/17/23 07:22
Hct 34.5 % (37.0-47.0) L 09/17/23 07:22
Plt Count 309 10^3/uL (130-400) 09/17/23 07:22
Sodium 136 mmol/L (135-145) 09/17/23 07:22
Potassium 3.7 mmol/L (3.5-5.1) 09/17/23 07:22
Chloride 103 mmol/L (98-107) 09/17/23 07:22
Carbon Dioxide 27 mmol/L (22-30) 09/17/23 07:22
BUN 46 mg/dl (7-17) H 09/17/23 07:22
Creatinine 2.4 mg/dL (0.6-1.0) H 09/17/23 07:22
eGFR 22.28 09/17/23 07:22
Glucose 100 mg/dl (70-99) H 09/17/23 07:22
Calcium 8.6 mg/dl (8.4-10.2) 09/17/23 07:22
Albumin 3.7 g/dl (3.5-5.0) 09/15/23 13:33
Physical Exam
-
Vital Signs:
Vital Signs
Temp Pulse Resp BP Pulse Ox
97.6 F 71 16 152/86 98
09/17/23 07:57 09/17/23 08:22 09/17/23 07:57 09/17/23 08:22 09/17/23 08:00
Cardiovascular:: Regular rate and rhythm
Respiratory:: Bilateral: CTA
Lung Excursion:: Normal
Abdomen:: Nontender and Soft
Bowel Sounds:: Normal
Extremity Edema:: +1: Bilateral:
José Catheter: Yes
--- NOTE | 2023-09-17 15:45 | VNURNOTE ---
Home health liaison spoke to spouse (Tuan) on phone explaining [facility]. Tuan states he is familiar with services from when had a CVA. Tuan states he is coming into hospital tonight and will discuss plan with his . States he
cares for her but can not do a lot of lifting. Tuan made aware of visit frequency, scheduling. Home health liaison to follow-up with spouse tomorrow on final plan.
[2023-09-17 16:00] VITALS: BP 151/74
[2023-09-17 16:39] LABS: Glucose - Point of Care 122 mg/dl (70-99)
[2023-09-17] MEDS: HEPARIN 5000 UNITS SC (20:00)
[2023-09-17] MEDS: LIPITOR 40 MG PO (21:48)
[2023-09-17] MEDS: NEURONTIN 100 MG PO (21:48)
[2023-09-17] MEDS: ATARAX 25 MG PO (21:48)
[2023-09-17 22:13] LABS: Glucose - Point of Care 107 mg/dl (70-99)
[2023-09-17 23:08] VITALS: BP 165/75
[2023-09-18] MEDS: LR 1000 IV (05:03)
[2023-09-18] MEDS: TYLENOL 650 MG PO ×2 (05:12→22:05)
[2023-09-18 07:50] LABS: Glucose - Point of Care 136 mg/dl (70-99)
[2023-09-18] MEDS: NOVOLOG FLEXPEN-LOW RESISTANCE SC (07:52)
[2023-09-18 08:00] VITALS: BP 124/89
[2023-09-18 08:53] LABS: Blood Urea Nitrogen 44 mg/dl (7-17); Calcium 9.1 mg/dl (8.4-10.2); Carbon Dioxide 31 mmol/L (22-30); Chloride 99 mmol/L (98-107); Estimated Creatinine Clearance 24 ml/min; Glucose 123 mg/dl (70-99); Potassium 3.5 mmol/L (3.5-5.1); Sodium 139 mmol/L (135-145); eGFR 22.28
[2023-09-18] MEDS: HEPARIN 5000 UNITS SC ×2 (09:21→20:09)
[2023-09-18] MEDS: NICODERM TRANSDERMAL TRANSDERM (09:22)
[2023-09-18] MEDS: LEXAPRO 20 MG PO (09:22)
[2023-09-18] MEDS: LOW STRENGTH ASPIRIN 81 MG PO (09:22)
[2023-09-18] MEDS: NORVASC 5 MG PO (09:22)
--- NOTE | 2023-09-18 10:05 | VNURNOTE ---
home health liaison followed-up with spouse Tuan. Tuan states his was walking around with a cane yesterday in the room. States he is ok with having [facility] services and does not think his would want to go to SNF. [facility] visit
scheduling/frequency, homebound status and pet policy explained to spouse. Tuan understands home visits will be 1-2 times a week to assess and teach medical management.Tuan aware a visiting nurse will contact them for start of care within 1-2
days after discharge from . [facility] Referral already completed in care port
--- NOTE | 2023-09-18 11:24 | W.PN.HOSP.TC ---
Today's Communication/Plan
-
stop fluids for now
repeat urine studies
eventual voiding trial prior to DC
reconsult renal
PT/OT --> eventual SNF
cannot reach (number goes to busy signal)
Assessment / Plan
Assessment / Plan
Ms. Gertrudis Gonzales is a 63 yo woman with hx acute right pontine ischemic stroke 08/18 with residual left sided weakness, HTN, IDDM who presents to the ER agitated.� Patient is currently sedated after receiving 1mg IV ativan and not able to provide
further history.� 's cell phone number goes to [employer].� Patient was brought in by EMS who were called because patient stated she was very weak and had pain all over.� Triage VS: P 84, RR 20, BP 122/78, SpO2 98%.� Labs with WBC 9.5, Hg
13.3, Na 140, K+ 4.4, CO2 16, Cr 3.0, Glucose 178.� Head CT without acute event.� Per FILTER PULP WASHER, patient was seen walking around her room in the ER and banged on her door.� She then stated she was too weak to get back to bed.� She was becoming
increasingly agitated, yelling at staff.� She was given 1mg IV Ativan and is now sleeping.� Patient heavily sedated and difficult to arouse in the ER.� Tried calling but phone number goes to busy signal.�
CT A/P
IMPRESSION:
Mild fatty infiltration of liver.
Bilateral adrenal benign adenomas.
No renal or ureteral calculus. No obstructive uropathy. Small bilateral renal cysts, with milk of calcium versus subtle calcification along the posterior cyst margin.
Moderate colonic fecal burden.
No urinary bladder calculus. No bladder wall thickening. Minor soft tissue stranding at the anterior superior bladder margin; cannot exclude minor inflammatory changes, possibly associated with a subtle urachus remnant.
LE Arterial US
IMPRESSION:
RIGHT LOWER EXTREMITY: REINA within normal limits at 1.10.� TBI mildly reduced at 0.65.� Arterial duplex examination reveals multiphasic waveforms from the common femoral artery through the popliteal artery with no focal velocity elevations to suggest
significant stenosis.� Multiphasic continuous Doppler waveforms are demonstrated in the dorsalis pedis artery and posterior tibial artery.
LEFT LOWER EXTREMITY: REINA within normal limits at 1.18.� TBI mildly reduced at 0.65.� Arterial duplex examination reveals monophasic waveforms in the common femoral artery and profunda femoral artery which may be indicative of iliac inflow disease.�
However multiphasic waveforms are demonstrated throughout the superficial femoral artery and popliteal artery.� No focal velocity elevations are identified to suggest significant stenosis.� Multiphasic continuous Doppler waveforms are demonstrated
in the dorsalis pedis artery and posterior tibial artery.
Ischemic foot ruled out - concern raised morning of 09/16 given discoloration and increased pain but US confirms no signifcant PAD
-appreciate vascular
Acute renal failure
-CT A/P without hydro
-patient with urinary retention and required josé (may have been related to methamphetamine use --> will attempt voiding trial prior to DC)
-s/p sodium bicarb and then LR; creatinine improved but now persistent at 2.4 without further improvement overnight on IVF
-will reconsult renal
-stop further IVF today as patient reports UE swelling
-repeat urine studies
Urinary retention
-s/p josé
-will attempt voiding trial prior to DC as was likely related to methamphetamine use
Meth Intoxication
-explains initial presentation with agitation
#DM2
-Cont SSI/ AccuCheck
-hold metformin due to PAULO
#Essential HTN
-Blood pressure stable
-Hold lisinopril due to PAULO
Muscle spasm
-patient with increased rigidity on 09/18 --> will give very low dose baclofen (given decreased creatinine clearance)
#Tobacco use disorder
-Nicotine patch
# DVT prophylaxis
-Heparin subcu
# CODE STATUS
-Full code
Anticipated Discharge: 24 - 48 hours
Subjective/Interval History
-
Date of Service: September 18, 2023
complaining of left arm spasticity
she has josé in
eating and drinking ok
is willing to go to rehab
Objective Data
-
Labs:
Laboratory Results
09/18/23
07:21
Sodium 139
Potassium 3.5
Chloride 99
Carbon Dioxide 31 H
BUN 44 H
Creatinine 2.4 H
Glucose 123 H
Calcium 9.1
Vital Signs:
Vital Signs
Temp Pulse Resp BP Pulse Ox
98.2 F 72 18 124/89 99
09/18/23 08:00 09/18/23 08:00 09/18/23 08:00 09/18/23 08:00 09/18/23 08:00
I&O
09/17/23 09/18/23 09/19/23
06:59 06:59 06:59
Intake Total 1250 / 1250 2100 / 2100
Output Total 1700 / 1700 2475 / 2475
Balance -450 / -450 -375 / -375
Review of Systems
-
History Source: Patient
All other systems: Reviewed and negative
Physical Exam
-
General: No Apparent Distress
HEENT: PERRLA
Respiratory: Clear to Auscultation
Cardiac: Regular Rhythm and S1/S2
GI: Soft and Nontender
Musculoskeletal: Other (LLE improved coloration, dp pulses present; increased LUE spasticity )
Skin: Warm and Dry; Negative Rash
Neuro: Awake, Alert and Other (patient a bit tangential, not fully making sense in speech )
Psych: Other; Negative Intact Judgement/Insight
Data Reviewed
-
Diagnostic Radiology: Report Reviewed by me
Labs: Labs Reviewed by me
[2023-09-18 11:48] VITALS: BP 102/78; PULSE 76; O2SAT 96
[2023-09-18] MEDS: LIORESAL 2.5 MG PO (12:14)
[2023-09-18 12:22] LABS: Glucose - Point of Care 159 mg/dl (70-99)
[2023-09-18] MEDS: NOVOLOG FLEXPEN-LOW RESISTANCE 1 UNITS SC ×2 (13:09→17:08)
[2023-09-18 15:04] LABS: Urine Sodium 53 mmol/L (30-90)
--- NOTE | 2023-09-18 15:14 | CM ---
Spoke with patient bedside.
Asked patient for spouses phone number- mobile# [phone]
Spoke with spouse Tuan re d/c plan and PT/OT recommendations.
Discussed his would prefer home with [facility] and spouse agrees if that's what she wants.
Patient continues with Hansen catheter.
Plan: home with [facility] when medically stable, spouse will transport.
--- NOTE | 2023-09-18 15:30 | W.PN.NEPH.PH ---
Today's Communication / Plan
-
f/u labs
Assessment/Plan
-
Assessment:
PAULO
NAGMA
hypertension
meth intoxication
Plan:
PAULO-possible prerenal and U retention
US with UTI, Fena ~1, no hydro on CT, cr improved and halted at 2.4
may take time to improve, ok to d/c IVF as her po intake is adequate
BPs are stable, hold ACEI
evolving met alkalosis off IVF now, cont josé
noted +ve dug screen on admit -amphetamine
d/w nursing
-
-
Date of Service: September 18, 2023
CC / HPI / ROS
-
Chief Complaint:
PAULO
History of Present Illness:
PAULO improving with fluids and josé , cr no change at 2.4
non oliguric
BPs stable
Review of Systems:
resting comfortable
no cp or sob
c/o UE edema
Labs
-
Labs:
WBC 7.1 10^3/uL (4.8-10.8) 09/17/23 07:22
RBC 4.05 10^6/uL (4.20-5.40) L 09/17/23 07:22
Hgb 12.0 g/dL (12.0-16.0) 09/17/23 07:22
Hct 34.5 % (37.0-47.0) L 09/17/23 07:22
Plt Count 309 10^3/uL (130-400) 09/17/23 07:22
Sodium 139 mmol/L (135-145) 09/18/23 07:21
Potassium 3.5 mmol/L (3.5-5.1) 09/18/23 07:21
Chloride 99 mmol/L (98-107) 09/18/23 07:21
Carbon Dioxide 31 mmol/L (22-30) H 09/18/23 07:21
BUN 44 mg/dl (7-17) H 09/18/23 07:21
Creatinine 2.4 mg/dL (0.6-1.0) H 09/18/23 07:21
eGFR 22.28 09/18/23 07:21
Glucose 123 mg/dl (70-99) H 09/18/23 07:21
Calcium 9.1 mg/dl (8.4-10.2) 09/18/23 07:21
Albumin 3.7 g/dl (3.5-5.0) 09/15/23 13:33
Physical Exam
-
Vital Signs:
Vital Signs
Temp Pulse Resp BP Pulse Ox
98.2 F 72 18 124/89 99
09/18/23 08:00 09/18/23 08:00 09/18/23 08:00 09/18/23 08:00 09/18/23 08:00
Cardiovascular:: Regular rate and rhythm
Respiratory:: Bilateral: CTA
Lung Excursion:: Normal
Abdomen:: Nontender and Soft
Extremity Edema:: None: Bilateral:
José Catheter: Yes
[2023-09-18 16:00] VITALS: BP 127/94
[2023-09-18 16:36] LABS: Glucose - Point of Care 160 mg/dl (70-99)
[2023-09-18 21:10] LABS: Glucose - Point of Care 146 mg/dl (70-99)
[2023-09-18] MEDS: ATARAX 25 MG PO (22:04)
[2023-09-18] MEDS: LIPITOR 40 MG PO (22:04)
[2023-09-18] MEDS: NEURONTIN 100 MG PO (22:05)
[2023-09-18 23:00] VITALS: BP 155/77
[2023-09-19 07:38] LABS: Glucose - Point of Care 145 mg/dl (70-99)
[2023-09-19] MEDS: NOVOLOG FLEXPEN-LOW RESISTANCE SC ×3 (07:41→16:34)
[2023-09-19 07:56] LABS: Blood Urea Nitrogen 37 mg/dl (7-17); Calcium 9.1 mg/dl (8.4-10.2); Carbon Dioxide 30 mmol/L (22-30); Chloride 103 mmol/L (98-107); Estimated Creatinine Clearance 22 ml/min; Glucose 116 mg/dl (70-99); Potassium 3.5 mmol/L (3.5-5.1); Sodium 140 mmol/L (135-145); eGFR 20.24
[2023-09-19 08:00] VITALS: BP 117/55
[2023-09-19] MEDS: NICODERM TRANSDERMAL TRANSDERM (08:04)
[2023-09-19] MEDS: LEXAPRO 20 MG PO (08:05)
[2023-09-19] MEDS: LOW STRENGTH ASPIRIN 81 MG PO (08:05)
[2023-09-19] MEDS: NORVASC 5 MG PO (08:05)
[2023-09-19] MEDS: HEPARIN 5000 UNITS SC ×2 (08:06→20:40)
[2023-09-19 11:27] LABS: Glucose - Point of Care 145 mg/dl (70-99)
--- NOTE | 2023-09-19 12:08 | W.PN.HOSP.TC ---
Today's Communication/Plan
-
monitor BMP, possible DC tomorrow
Assessment / Plan
Assessment / Plan
Ms. Gertrudis Gonzales is a 63 yo woman with hx acute right pontine ischemic stroke 08/18 with residual left sided weakness, HTN, IDDM who presents to the ER agitated.� Patient is currently sedated after receiving 1mg IV ativan and not able to provide
further history.� 's cell phone number goes to [employer].� Patient was brought in by EMS who were called because patient stated she was very weak and had pain all over.� Triage VS: P 84, RR 20, BP 122/78, SpO2 98%.� Labs with WBC 9.5, Hg
13.3, Na 140, K+ 4.4, CO2 16, Cr 3.0, Glucose 178.� Head CT without acute event.� Per ENVIRONMENTAL STUDIES DEPARTMENT CHAIR, patient was seen walking around her room in the ER and banged on her door.� She then stated she was too weak to get back to bed.� She was becoming
increasingly agitated, yelling at staff.� She was given 1mg IV Ativan and is now sleeping.� Patient heavily sedated and difficult to arouse in the ER.� Tried calling but phone number goes to [employer].�
CT A/P
IMPRESSION:
Mild fatty infiltration of liver.
Bilateral adrenal benign adenomas.
No renal or ureteral calculus. No obstructive uropathy. Small bilateral renal cysts, with milk of calcium versus subtle calcification along the posterior cyst margin.
Moderate colonic fecal burden.
No urinary bladder calculus. No bladder wall thickening. Minor soft tissue stranding at the anterior superior bladder margin; cannot exclude minor inflammatory changes, possibly associated with a subtle urachus remnant.
LE Arterial US
IMPRESSION:
RIGHT LOWER EXTREMITY: REINA within normal limits at 1.10.� TBI mildly reduced at 0.65.� Arterial duplex examination reveals multiphasic waveforms from the common femoral artery through the popliteal artery with no focal velocity elevations to suggest
significant stenosis.� Multiphasic continuous Doppler waveforms are demonstrated in the dorsalis pedis artery and posterior tibial artery.
LEFT LOWER EXTREMITY: REINA within normal limits at 1.18.� TBI mildly reduced at 0.65.� Arterial duplex examination reveals monophasic waveforms in the common femoral artery and profunda femoral artery which may be indicative of iliac inflow disease.�
However multiphasic waveforms are demonstrated throughout the superficial femoral artery and popliteal artery.� No focal velocity elevations are identified to suggest significant stenosis.� Multiphasic continuous Doppler waveforms are demonstrated
in the dorsalis pedis artery and posterior tibial artery.
Ischemic foot ruled out - concern raised morning of 09/16 given discoloration and increased pain but US confirms no signifcant PAD
-appreciate vascular
Acute renal failure
-CT A/P without hydro
-patient with urinary retention and required josé (may have been related to methamphetamine use --> now s/p voiding trial and urinating on her own)
-s/p sodium bicarb and then LR; creatinine improved but now persistent at 2.4 without further improvement overnight on IVF
-further IVF stopped
-patient reports hx NSAID use
-monitor one more day, possible DC tomorrow
Urinary retention
-s/p josé
-will attempt voiding trial prior to DC as was likely related to methamphetamine use
-resolved - josé out
Meth Intoxication
-explains initial presentation with agitation
#DM2
-Cont SSI/ AccuCheck
-hold metformin due to PAULO
#Essential HTN
-Blood pressure stable
-Hold lisinopril due to PAULO
Muscle spasm
-patient with increased rigidity on 09/18 --> will give very low dose baclofen (given decreased creatinine clearance)
#Tobacco use disorder
-Nicotine patch
# DVT prophylaxis
-Heparin subcu
# CODE STATUS
-Full code
Anticipated Discharge: 24 - 48 hours
Subjective/Interval History
-
Date of Service: September 19, 2023
urinating without josé catheter
wants to go home
Objective Data
-
Labs:
Laboratory Results
09/19/23
05:54
Sodium 140
Potassium 3.5
Chloride 103
Carbon Dioxide 30
BUN 37 H
Creatinine 2.6 H
Glucose 116 H
Calcium 9.1
Vital Signs:
Vital Signs
Temp Pulse Resp BP Pulse Ox
98.4 F 61 18 117/55 97
09/19/23 08:00 09/19/23 08:00 09/19/23 08:00 09/19/23 08:00 09/19/23 08:00
I&O
09/18/23 09/19/23 09/20/23
06:59 06:59 06:59
Intake Total 2100 / 2099 960 / 960
Output Total 2475 / 2475 2300 / 2300
Balance -375 / -375 -1340 / -1340
Review of Systems
-
History Source: Patient
All other systems: Reviewed and negative
Physical Exam
-
General: No Apparent Distress
HEENT: PERRLA
Respiratory: Clear to Auscultation
Cardiac: Regular Rhythm and S1/S2
GI: Soft and Nontender
Musculoskeletal: Other (LLE improved coloration, dp pulses present; increased LUE spasticity )
Skin: Warm and Dry; Negative Rash
Neuro: Awake, Alert and Other (patient a bit tangential, not fully making sense in speech )
Psych: Other; Negative Intact Judgement/Insight
Data Reviewed
-
Diagnostic Radiology: Report Reviewed by me
Labs: Labs Reviewed by me
[2023-09-19] MEDS: LIORESAL 2.5 MG PO (12:55)
[2023-09-19 15:00] VITALS: BP 169/94
--- NOTE | 2023-09-19 15:45 | W.PN.NEPH.PH ---
Today's Communication / Plan
-
follow labs
check U eosinophils
Assessment/Plan
-
Assessment:
PAULO
NAGMA
Urinary retention
Meth Intoxication
DM2
Essential HTN
Muscle spasm
Tobacco use disorder
Plan:
PAULO-felt to be possible prerenal and U retention
however pt reports of using NSAIDs heavily for last 1yr
check U eosinophils, high likely that she has CKD
cr slightly up today to 2.6, repeat tomorrow
off josé today, follow bladder scan
UA with UTI, Fena ~1, no hydro on CT
euvolemic no IVF at this time
BPs are stable, hold ACEI
noted +ve dug screen on admit -amphetamine
d/w primary
-
-
Date of Service: September 19, 2023
CC / HPI / ROS
-
Chief Complaint:
PAULO
History of Present Illness:
PAULO , cr slightly up at 2.6
non oliguric , off josé this am
BPs stable
Review of Systems:
resting comfortable
no cp or sob
c/o UE edema
was taking 200mg of ibuprofen 6/day for last 1yr
Labs
-
Labs:
WBC 7.1 10^3/uL (4.8-10.8) 09/17/23 07:22
RBC 4.05 10^6/uL (4.20-5.40) L 09/17/23 07:22
Hgb 12.0 g/dL (12.0-16.0) 09/17/23 07:22
Hct 34.5 % (37.0-47.0) L 09/17/23 07:22
Plt Count 309 10^3/uL (130-400) 09/17/23 07:22
Sodium 140 mmol/L (135-145) 09/19/23 05:54
Potassium 3.5 mmol/L (3.5-5.1) 09/19/23 05:54
Chloride 103 mmol/L (98-107) 09/19/23 05:54
Carbon Dioxide 30 mmol/L (22-30) 09/19/23 05:54
BUN 37 mg/dl (7-17) H 09/19/23 05:54
Creatinine 2.6 mg/dL (0.6-1.0) H 09/19/23 05:54
eGFR 20.24 09/19/23 05:54
Glucose 116 mg/dl (70-99) H 09/19/23 05:54
Calcium 9.1 mg/dl (8.4-10.2) 09/19/23 05:54
Albumin 3.7 g/dl (3.5-5.0) 09/15/23 13:33
Physical Exam
-
Vital Signs:
Vital Signs
Temp Pulse Resp BP Pulse Ox
98.3 F 72 18 169/94 96
09/19/23 15:00 09/19/23 15:00 09/19/23 15:00 09/19/23 15:00 09/19/23 15:00
Cardiovascular:: Regular rate and rhythm
Respiratory:: Bilateral: CTA
Lung Excursion:: Normal
Abdomen:: Nontender and Soft
Extremity Edema:: None: Bilateral:
José Catheter: No
[2023-09-19 16:30] LABS: Glucose - Point of Care 136 mg/dl (70-99)
[2023-09-19 17:29] LABS: Body Fluid for Eosinophils No Eosinophils seen
[2023-09-19] MEDS: TYLENOL 650 MG PO (20:40)
[2023-09-19 21:48] LABS: Glucose - Point of Care 136 mg/dl (70-99)
[2023-09-19] MEDS: NEURONTIN 100 MG PO (22:13)
[2023-09-19] MEDS: LIPITOR 40 MG PO (22:14)
[2023-09-19] MEDS: ATARAX 25 MG PO (22:17)
[2023-09-19 23:00] VITALS: BP 164/66
[2023-09-20 07:25] VITALS: BP 155/95
[2023-09-20 07:35] LABS: Blood Urea Nitrogen 41 mg/dl (7-17); Calcium 9.7 mg/dl (8.4-10.2); Carbon Dioxide 29 mmol/L (22-30); Chloride 100 mmol/L (98-107); Estimated Creatinine Clearance 23 ml/min; Glucose 124 mg/dl (70-99); Potassium 3.5 mmol/L (3.5-5.1); Sodium 138 mmol/L (135-145); eGFR 21.21
[2023-09-20] MEDS: NICODERM TRANSDERMAL TRANSDERM (07:41)
[2023-09-20] MEDS: NOVOLOG FLEXPEN-LOW RESISTANCE SC (07:41)
[2023-09-20] MEDS: LOW STRENGTH ASPIRIN 81 MG PO (07:46)
[2023-09-20] MEDS: NORVASC 5 MG PO (07:46)
[2023-09-20] MEDS: LEXAPRO 20 MG PO (07:46)
[2023-09-20] MEDS: HEPARIN SC (07:49)
[2023-09-20 08:23] LABS: Glucose - Point of Care 127 mg/dl (70-99)
--- NOTE | 2023-09-20 12:15 | W.PN.HOSP.TC ---
Addendum entered and electronically signed by Brenda Amanda MD 09/30/23 18:54:
�PAULO remains a known or suspected condition for this patient� and is further supported by an increase in creatinine by > 0.3.
Original Note:
Today's Communication/Plan
-
Ok for discharge today
Assessment / Plan
Assessment / Plan
Ms. Gertrudis Gonzales is a 63 yo woman with hx acute right pontine ischemic stroke 08/18 with residual left sided weakness, HTN, IDDM who presents to the ER agitated.� Patient is currently sedated after receiving 1mg IV ativan and not able to provide
further history.� 's cell phone number goes to busy signal.� Patient was brought in by EMS who were called because patient stated she was very weak and had pain all over.� Triage VS: P 84, RR 20, BP 122/78, SpO2 98%.� Labs with WBC 9.5, Hg
13.3, Na 140, K+ 4.4, CO2 16, Cr 3.0, Glucose 178.� Head CT without acute event.� Per NAIL PROFESSIONAL, patient was seen walking around her room in the ER and banged on her door.� She then stated she was too weak to get back to bed.� She was becoming
increasingly agitated, yelling at staff.� She was given 1mg IV Ativan and is now sleeping.� Patient heavily sedated and difficult to arouse in the ER.� Tried calling but phone number goes to busy signal.�
CT A/P
IMPRESSION:
Mild fatty infiltration of liver.
Bilateral adrenal benign adenomas.
No renal or ureteral calculus. No obstructive uropathy. Small bilateral renal cysts, with milk of calcium versus subtle calcification along the posterior cyst margin.
Moderate colonic fecal burden.
No urinary bladder calculus. No bladder wall thickening. Minor soft tissue stranding at the anterior superior bladder margin; cannot exclude minor inflammatory changes, possibly associated with a subtle urachus remnant.
LE Arterial US
IMPRESSION:
RIGHT LOWER EXTREMITY: REINA within normal limits at 1.10.� TBI mildly reduced at 0.65.� Arterial duplex examination reveals multiphasic waveforms from the common femoral artery through the popliteal artery with no focal velocity elevations to suggest
significant stenosis.� Multiphasic continuous Doppler waveforms are demonstrated in the dorsalis pedis artery and posterior tibial artery.
LEFT LOWER EXTREMITY: REINA within normal limits at 1.18.� TBI mildly reduced at 0.65.� Arterial duplex examination reveals monophasic waveforms in the common femoral artery and profunda femoral artery which may be indicative of iliac inflow disease.�
However multiphasic waveforms are demonstrated throughout the superficial femoral artery and popliteal artery.� No focal velocity elevations are identified to suggest significant stenosis.� Multiphasic continuous Doppler waveforms are demonstrated
in the dorsalis pedis artery and posterior tibial artery.
Ischemic foot ruled out - concern raised morning of 09/16 given discoloration and increased pain but US confirms no signifcant PAD
-appreciate vascular
Acute renal failure
-CT A/P without hydro
-patient with urinary retention and required josé (may have been related to methamphetamine use --> now s/p voiding trial and urinating on her own)
-s/p sodium bicarb and then LR; creatinine improved but now persistent at 2.4 without further improvement overnight on IVF
-further IVF stopped
-patient reports hx NSAID use
-stable, patient with CKD - OK for DC
-f/U with renal
Urinary retention
-s/p josé
-now urinating on own
Meth Intoxication
-explains initial presentation with agitation
#DM2
-Cont SSI/ AccuCheck
-hold metformin due to PAULO
#Essential HTN
-Blood pressure stable
-Hold lisinopril due to PAULO
Muscle spasm
-patient with increased rigidity on 09/18 --> will give very low dose baclofen (given decreased creatinine clearance)
#Tobacco use disorder
-Nicotine patch
# DVT prophylaxis
-Heparin subcu
# CODE STATUS
-Full code
Anticipated Discharge: Today
Subjective/Interval History
-
Date of Service: September 20, 2023
feeling well
wants to go home
Objective Data
-
Labs:
Laboratory Results
09/20/23
06:10
Sodium 138
Potassium 3.5
Chloride 100
Carbon Dioxide 29
BUN 41 H
Creatinine 2.5 H
Glucose 124 H
Calcium 9.7
Vital Signs:
Vital Signs
Temp Pulse Resp BP Pulse Ox
97.6 F 69 20 167/95 100
09/20/23 07:25 09/20/23 07:46 09/20/23 07:25 09/20/23 07:46 09/20/23 07:25
I&O
09/19/23 09/20/23 09/21/23
06:59 06:59 06:59
Intake Total 960 / 960 1919
Output Total 2300 / 2300
Balance -1340 / -1340 1919
Review of Systems
-
History Source: Patient
All other systems: Reviewed and negative
Physical Exam
-
General: No Apparent Distress
HEENT: PERRLA
Respiratory: Clear to Auscultation
Cardiac: Regular Rhythm and S1/S2
GI: Soft and Nontender
Musculoskeletal: Other (LLE improved coloration, dp pulses present; increased LUE spasticity )
Skin: Warm and Dry; Negative Rash
Neuro: Awake, Alert and Other (patient a bit tangential, not fully making sense in speech )
Psych: Other; Negative Intact Judgement/Insight
Data Reviewed
-
Diagnostic Radiology: Report Reviewed by me
Labs: Labs Reviewed by me
[2023-09-20 12:23] LABS: Glucose - Point of Care 178 mg/dl (70-99)
--- NOTE | 2023-09-20 12:26 | W.DS.TRANS ---
DC Summary - Rn Clinical Research
-
Discharge Instructions:
Discharge Diagnosis/Procedures acute on chronic kidney disease; urinary
retention
Diet Restrict fluids to 48 oz
Activity As tolerated
Driving Restrictions As prior to admission
Bathing Restrictions None
Other Services PT,VN,OT
Instructions:
Stand-Alone Forms:
Changes to Home Medications: Yes
Discharge Medications:
DC Medications w/original date entered in [employer]
atorvastatin 40 mg tablet 40 mg PO HS #30 tabs 08/26/22
escitalopram oxalate 20 mg tablet 20 mg PO DAILY #30 tabs 08/26/22
amlodipine 5 mg tablet 5 mg PO DAILY 09/15/23
quetiapine 50 mg tablet (Seroquel) 50 mg PO HS 09/15/23
gabapentin 100 mg capsule 100 mg PO HS 09/16/23
hydroxyzine HCl 25 mg tablet 25 mg PO HS 09/16/23
aspirin 81 mg chewable tablet (Children's Aspirin) 81 mg PO DAILY #0 tabs 09/20/23
baclofen 5 mg tablet 2.5 mg PO DAILYPRN PRN muscle spasm #15 tabs 09/20/23
nicotine 21 mg/24 hr daily transdermal patch 21 mg transdermal DAILY #0 ea 09/20/23
Home Medication Changes
Medication changes:
-avoid all NSAIDS (advil, motrin, ibuprofe, aleve etc)
-stop lisinopril
-stop metformin
-stop baclofen at 20mg. This dose is way too high for your kidney function. You are prescribed a much lower dose at 2.5mg to be taken once daily as needed.
-you have not required insulin in the hospital. You have told me you don't take insulin at home. Continue to measure your blood glucose levels and report results to your PCP. insulin 70/30 was on prior medication list at 15 units. If you resume
insulin then resume at lower dose (5 units) until redirected by your PCP
Pending Results: No
[2023-09-20] MEDS: NOVOLOG FLEXPEN-LOW RESISTANCE 1 UNITS SC (12:29)
--- NOTE | 2023-09-20 12:49 | CM ---
Home with spouse and [facility].
Plan; Home with spouse and [facility].
--- NOTE | 2023-09-20 13:41 | W.PN.NEPH.PH ---
Today's Communication / Plan
-
see plan
Assessment/Plan
-
Assessment:
PAULO
NAGMA
Urinary retention
Meth Intoxication
DM2
Essential HTN
Muscle spasm
Tobacco use disorder
Plan:
PAULO-felt to be possible prerenal and U retention
however pt reports of using NSAIDs heavily for last 1yr
neg U eosinophils, high likely that she has CKD
cr relatively stable at mid 2s highly suspect she has CKD
off josé, voiding well
UA with UTI, Fena ~1, no hydro on CT
BPs are stable, hold ACEI
noted +ve dug screen on admit -amphetamine
d/w primary
BMP in 1week
need nephro f/u, not sure if her insurance coverage of out practice
she will f/u with PCP
d/w primary and pt
-
-
Date of Service: September 20, 2023
CC / HPI / ROS
-
Chief Complaint:
PAULO
History of Present Illness:
PAULO , cr no change at 2.5
non oliguric ,
BPs stable
Review of Systems:
resting comfortable
no cp or sob
was taking 200mg of ibuprofen 6/day for last 1yr
Labs
-
Labs:
WBC 7.1 10^3/uL (4.8-10.8) 09/17/23 07:22
RBC 4.05 10^6/uL (4.20-5.40) L 09/17/23 07:22
Hgb 12.0 g/dL (12.0-16.0) 09/17/23 07:22
Hct 34.5 % (37.0-47.0) L 09/17/23 07:22
Plt Count 309 10^3/uL (130-400) 09/17/23 07:22
Sodium 138 mmol/L (135-145) 09/20/23 06:10
Potassium 3.5 mmol/L (3.5-5.1) 09/20/23 06:10
Chloride 100 mmol/L (98-107) 09/20/23 06:10
Carbon Dioxide 29 mmol/L (22-30) 09/20/23 06:10
BUN 41 mg/dl (7-17) H 09/20/23 06:10
Creatinine 2.5 mg/dL (0.6-1.0) H 09/20/23 06:10
eGFR 21.21 09/20/23 06:10
Glucose 124 mg/dl (70-99) H 09/20/23 06:10
Calcium 9.7 mg/dl (8.4-10.2) 09/20/23 06:10
Albumin 3.7 g/dl (3.5-5.0) 09/15/23 13:33
Physical Exam
-
Vital Signs:
Vital Signs
Temp Pulse Resp BP Pulse Ox
97.6 F 69 20 167/95 100
09/20/23 07:25 09/20/23 07:46 09/20/23 07:25 09/20/23 07:46 09/20/23 07:25
Cardiovascular:: Regular rate and rhythm
Respiratory:: Bilateral: CTA
Lung Excursion:: Normal
Abdomen:: Nontender and Soft
Extremity Edema:: None: Bilateral:
José Catheter: No
--- NOTE | 2023-09-20 15:07 | W.DCSUMMARY ---
Discharge Summary
Discharge Data
Date of Admission: 09/15/23
Date of Discharge: 09/20/23
-
Pending Results: No
Hospital Course
Discharging Physician : Dr. Brenda Amanda
Disposition : Home with home health
Primary care physician : Dr. Devaughn Arriola
Principal Discharge diagnosis : acute on chronic kidney disease; toxicology positive for methamphetamine use; urinary retention
Hospital Course :
Ms. Gertrudis Gonzales is a 63 yo woman with hx acute right pontine ischemic stroke 08/18 with residual left sided weakness, HTN, IDDM who presents to the ER agitated.� Patient was brought in by EMS who were called because patient stated she was very
weak and had pain all over.� Triage VS: P 84, RR 20, BP 122/78, SpO2 98%.� Labs with WBC 9.5, Hg 13.3, Na 140, K+ 4.4, CO2 16, Cr 3.0, Glucose 178.� Head CT without acute event. She was given IV Ativan in the ER and very sedated on admission.
Patient was admitted for further work-up of weakness, pain and acute renal failure.
Patient's mentation returned to normal following morning once ativan cleared.
Flu and covid were negative. CT A/P without e/o renal stone. UTox positive for methamphetamines. Patient was found to be retaining urine and josé catheter placed. She was continued on IVF with initial improvement in renal function which then
plateau'd at creatinine 2.4-2.6. José removed and she passed voiding trial. She likely has CKD. Reported recent NSAID use. She is told to avoid NSAIDs and will follow up with nephrology. Changes to home meds include stopping NSAIDs,
lisinopril, metformin. Her baclofen dose is lowered significantly (from 20 TID PRN to 2.5mg PO QD PRN).
While patient was off metformin and insulin her BGL were in the 100's in the hospital. She is told to resume lower doses of insulin at home.
Of note, on hospital day 1, it was noted that patient's left foot was cold to touch, painful and discolored. Stat consult with vascular called who were able to feel good dp pulses. Arterial US showed no significant disease. Patient stated it was
related to recent botox injections.
SNF recommended by PT but patient refused. HH arranged.
Time spent on discharge was 35 minutes.
Important imaging findings :
CT A/P
IMPRESSION:
Mild fatty infiltration of liver.
Bilateral adrenal benign adenomas.
No renal or ureteral calculus. No obstructive uropathy. Small bilateral renal cysts, with milk of calcium versus subtle calcification along the posterior cyst margin.
Moderate colonic fecal burden.
No urinary bladder calculus. No bladder wall thickening. Minor soft tissue stranding at the anterior superior bladder margin; cannot exclude minor inflammatory changes, possibly associated with a subtle urachus remnant.
LE Arterial US
IMPRESSION:
RIGHT LOWER EXTREMITY: REINA within normal limits at 1.10.� TBI mildly reduced at 0.65.� Arterial duplex examination reveals multiphasic waveforms from the common femoral artery through the popliteal artery with no focal velocity elevations to suggest
significant stenosis.� Multiphasic continuous Doppler waveforms are demonstrated in the dorsalis pedis artery and posterior tibial artery.
LEFT LOWER EXTREMITY: REINA within normal limits at 1.18.� TBI mildly reduced at 0.65.� Arterial duplex examination reveals monophasic waveforms in the common femoral artery and profunda femoral artery which may be indicative of iliac inflow disease.�
However multiphasic waveforms are demonstrated throughout the superficial femoral artery and popliteal artery.� No focal velocity elevations are identified to suggest significant stenosis.� Multiphasic continuous Doppler waveforms are demonstrated
in the dorsalis pedis artery and posterior tibial artery.
Procedure findings :
Discharge Plan
-
Patient Disposition: Home (Routine Discharge)
Discharge Diagnosis/Procedures: acute on chronic kidney disease; urinary retention
Diet: Restrict fluids to 48 oz
Activity: As tolerated
Driving Restrictions: As prior to admission
Bathing Restrictions: None
Other Services: VN, PT and OT
Activity Restrictions/Additional Instructions:
Please follow up with Nephrology. We need to confirm your insurance is accepted by Dr. Escobar's office. If not, you will need a referral to a different clinic from your PCP.
Medication changes:
-avoid all NSAIDS (advil, motrin, ibuprofe, aleve etc)
-stop lisinopril
-stop metformin
-stop baclofen at 20mg. This dose is way too high for your kidney function. You are prescribed a much lower dose at 2.5mg to be taken once daily as needed.
-you have not required insulin in the hospital. You have told me you don't take insulin at home. Continue to measure your blood glucose levels and report results to your PCP. insulin 70/30 was on prior medication list at 15 units. If you resume
insulin then resume at lower dose (5 units) until redirected by your PCP
Referrals:
Devaughn Arriola PA-C [Family Provider] - in less than 1 week
Arlene Escobar MD [Active] - in two to four weeks
Prescriptions:
New
baclofen 5 mg Tablet
2.5 mg PO DAILYPRN PRN (Reason: muscle spasm) Qty: 15 0RF
nicotine 21 mg/24 hr Patch 24 Hour
21 mg transdermal DAILY Qty: 0 0RF
aspirin [Children's Aspirin] 81 mg Tablet,Chewable
81 mg PO DAILY Qty: 0 0RF
Continued
amlodipine 5 mg Tablet
5 mg PO DAILY
quetiapine [Seroquel] 50 mg Tablet
50 mg PO HS
hydroxyzine HCl 25 mg Tablet
25 mg PO HS
gabapentin 100 mg Capsule
100 mg PO HS
atorvastatin 40 mg tablet
40 mg PO HS Qty: 30 0RF
escitalopram oxalate 20 mg Tablet
20 mg PO DAILY Qty: 30 0RF
Discontinued
baclofen 10 mg Tablet
20 mg PO TIDPRN PRN (Reason: spasms)
Novolin 70-30 FlexPen U-100 100 unit/mL (70-30) Insulin Pen
15 unit SC DAILY
metformin 500 mg Tablet
500 mg PO BID
lisinopril 20 mg Tablet
20 mg PO DAILY Qty: 30 0RF
Discharge Orders:
Discharge Patient (As Directed); Ordered 09/20/23
Ordered By: Brenda Amanda
--- NOTE | 2023-09-23 10:44 | PN.CDI ---
CDI
- -
CDI:
Physician Documentation Request
Admit Date: 09/15/23 16:37
Dear Doctor Vasiliy,
Patient admitted with change of mental status.
Discharge Summary: 'acute on chronic kidney disease...She was continued on IVF with initial improvement in renal function which then plateau'd at creatinine 2.4-2.6.'
Laboratory Tests
01/31/23 09/15/23 09/18/23
09:17 13:33 07:21
Creatinine 0.6 3.0 H 2.4 H
The purpose of this query is not to question medical judgement, but to ensure the accuracy of the conditions reported for your patient.
There is either a lack of clinical support for this condition in the current medical record, or there is a lack of recognized standard criteria to support the condition.
Criteria for PAULO*
1 Increase in serum creatinine by > or = to 0.3 mg/dL (> or = to 26.5 micromol/L) within 48 hours, OR
2 Increase in serum creatinine to > or = to 1.5 times baseline, which is known or presumed to have occurred within 7 days, OR
3 Urine volume < 0.5 nL/kg/hour for six hours
The request is for one of the following:
- Additional documentation to support the condition. Indicate if this is in lieu of what may be considered standard criteria, and/or support why the standard criteria may not be present for this patient.
- A more appropriate diagnosis, reflecting the patient's condition
- PAULO remains a known or suspected condition for this patient and is further supported by (include additional documentation in the medical record)
- PAULO has been ruled out and a more appropriate diagnosis for this patient's condition is .
- Other (please specify)
Use of terms such as suspected, likely, concern for, or probable (associated with a specific diagnosis that is being evaluated, monitored, or treated as if it exists) are acceptable and can be coded in the inpatient setting, when documented at the
time of discharge.
Thank you,
Tawanna Olguin RN, BSN
CDI Specialist
Available via [place] text
Please use your independent medical judgment in providing your response.
== END 2023-09-20 15:48 | disposition home health service (06) | DRG 71 ==
LOC: 4 WEST ACU 16:37
PROVIDERS: Internal Medicine; Physician Assistant; Registered Nurse; ADMITTING PHYSICIAN Student in an Organized Health Care Education/Training Program; CONSULT PHYSICIAN Student in an Organized Health Care Education/Training Program; EMERGENCY PHYSICIAN Emergency Medicine; FAMILY PHYSICIAN Physician Assistant Medical; OTHER PHYSICIAN Surgery Vascular Surgery
DX: G93.41 Metabolic encephalopathy (principal); E87.20 Acidosis, unspecified; N17.9 Acute kidney failure, unspecified; I12.9 Hypertensive chronic kidney disease with stage 1 through stage 4 chronic kidney disease, or unspecified chronic kidney disease; F17.200 Nicotine dependence, unspecified, uncomplicated; E86.0 Dehydration; R33.9 Retention of urine, unspecified; E11.22 Type 2 diabetes mellitus with diabetic chronic kidney disease; N18.9 Chronic kidney disease, unspecified; F15.129 Other stimulant abuse with intoxication, unspecified; T43.655A Adverse effect of methamphetamines, initial encounter
CPT/HCPCS: 70450; 74176; 80048; 80053; 80306; 80307; 81003; 81015; 81099; 82570; 82962; 83036; 83735; 84300; 84443; 85025; 85027; 87086; 87088; 87186; 87502; 87811; 93005; 93922; 93925; 96361; 96374; 97163; 97167; 97530; 97535; 99285; J7030

== ENCOUNTER → 2024-01-13 14:25 | Outpatient (REF) | payer OTHER, SELFPAY | LOC: HWRAD 14:25 | PROVIDERS: ATTENDING PHYSICIAN Physician Assistant Medical | DX: R23.8 Other skin changes (principal); M79.89 Other specified soft tissue disorders | CPT/HCPCS: 93971 ==

== ENCOUNTER 2024-11-22 16:50 | Emergency (ER) | payer OTHER, SELFPAY ==
[2024-11-22 16:52] VITALS: BP 129/68
--- NOTE | 2024-11-22 18:15 | ED.GENMED ---
History of Present Illness
General
Chief Complaint: Skin Problem
Time Seen by Provider: 11/22/24 18:02
History of Present Illness
History of Present Illness:
Patient is a 64-year-old woman presenting to the emergency department for leg swelling. Patient states that her left leg has been swollen for almost a year. She notes her right leg has started to swell a few days ago. Went to her primary care
doctor who noted significant swelling to her left leg along with redness so she sent her to the emergency department for an ultrasound. Patient denies any recent travel malignancy hemoptysis chest pain. Occasionally gets shortness of breath but
says its due to obesity. No history of blood clots. No nausea vomiting. She does not wear compression stockings. No fevers chills. No open wounds to her feet.
Past History
Past History
ED Past Medical History: CVA (Right pontine July 2022), HTN, IDDM and Other (Endometriosis)
ED Past Surgical History: Gynecological (Several laparoscopies for endometriosis, hysterectomy has 1 ovary remaining.)
Social History
Tobacco: Smoker
Alcohol: Former
Drug: None
Personal: Partner
Living: with family
Employment: Not employed
Family History
Family History: Other (Reviewed and noncontributory)
Phy Exam
Physical Exam
Physical Exam:
GENERAL: in no acute distress
HEENT: normocephalic, extraocular movements intact, moist oral mucosa
NECK: normal inspection
RESPIRATORY: no respiratory distress, clear to auscultation bilaterally
CARDIOVASCULAR: regular rate and rhythm
ABDOMEN/: soft, non-distended, non-tender to palpation, no rebound or guarding
EXTREMITIES: Left lower extremity swelling to the mid calf with associated redness but no warmth. It is not tender. Right lower extremity with mild pedal edema
NEUROLOGIC: awake and alert, moves all extremities
SKIN: warm
Course
Orders/Labs/Results
Orders:
Orders
11/22/24 16:54
US Periph Venous LOWER Ext LT Urgent
Comment:
Reason For Exam: swelling/redness
11/22/24 18:55
Comprehensive Metabolic Panel Urgent
11/22/24 18:56
Complete Blood Count/With Diff Urgent
NT-proBNP Urgent
Abnormal Lab Results
11/22/24 11/22/24
18:55 18:56
Absolute Monos (auto) 0.7 H 10^3/uL
(0.1-0.6)
Glucose 196 H mg/dl
(70-99)
Alkaline Phosphatase 137 H U/L
(38-126)
11/22/24 18:56
11/22/24 18:55
Vital Signs
Initial and Last Documented VS:
Initial Vital Signs
Temp Pulse Resp BP Pulse Ox
98.8 F 77 18 129/68 97
11/22/24 16:52 11/22/24 16:52 11/22/24 16:52 11/22/24 16:52 11/22/24 16:52
Last Documented Vital Signs
Temp Pulse Resp BP Pulse Ox
98.8 F 77 18 129/68 97
11/22/24 16:52 11/22/24 16:52 11/22/24 16:52 11/22/24 16:52 11/22/24 16:52
MDM/Problems Addressed
Differential Diagnosis Includes:
Patient is a 64-year-old woman presenting to the emergency department with bilateral lower extremity swelling worse to the left with associated redness. Vitals are notable for being afebrile. On exam she does have swelling worse to the left lower
extremity with mild redness but is not warm or tender. Concern for DVT versus venous stasis. Considered CHF with the shortness of breath however lungs are clear. Considered cellulitis though there is no warmth or open wound. DVT study is
negative. She does have 2 lymph nodes seen on ultrasound. Could be reactive though there is no overt infection. Patient advised to to monitor the lymph nodes and if they do not improve to get repeat ultrasound. Patient also advised to monitor
the redness and if there is any signs of infection as then she will need antibiotics. Will check blood work to evaluate kidney function and liver function as well as BNP.
*Critical Care Note
Total Time (30-74mins, 75-104mins- exclusive of procedures): Not Applicable
Update Note
Update Note:
Blood work reassuring. After shared decision making we will give patient a 3-day course of Lasix. Patient will follow-up with PCP. Will also obtain repeat blood work. Patient also advised on compression stockings and keeping legs elevated.
ED Attending Note
-
Portions of this chart may have been created with voice recognition software.� Occasional wrong word or��sound alike� substitutions may have occurred due to the inherent limitations of voice recognition software.
Discharge Plan
Departure
Patient Disposition: Home (Routine Discharge)
Date of Disposition: 11/22/24
Time of Disposition: 21:02
Patient with high blood pressure during this ER visit?: No
Discharge Problem:
Leg swelling
Instructions: Swelling
Prescriptions:
New
furosemide [Lasix] 20 mg tablet
20 mg PO DAILY 3 Days Qty: 3 0RF
No Action
amlodipine 5 mg Tablet
5 mg PO DAILY
quetiapine [Seroquel] 50 mg Tablet
50 mg PO HS
hydroxyzine HCl 25 mg Tablet
25 mg PO HS
gabapentin 100 mg Capsule
100 mg PO HS
baclofen 5 mg Tablet
2.5 mg PO DAILYPRN PRN (Reason: muscle spasm) Qty: 15 0RF
nicotine 21 mg/24 hr Patch 24 Hour
21 mg transdermal DAILY Qty: 0 0RF
aspirin [Children's Aspirin] 81 mg Tablet,Chewable
81 mg PO DAILY Qty: 0 0RF
atorvastatin 40 mg tablet
40 mg PO HS Qty: 30 0RF
escitalopram oxalate 20 mg Tablet
20 mg PO DAILY Qty: 30 0RF
Referrals:
Devaughn Arriola PA-C [Family Provider] -
Activity Restrictions/Additional Instructions:
You were seen in the Emergency Department today for leg swelling. While you were here we performed blood work, which was reassuring. I did prescribe you a water pill called Lasix. Please take it for 3 days. Please make sure you get repeat blood
work done next week to make sure your electrolytes are okay. Please continue to watch out for the redness in your leg. If it becomes warm or if you notice drainage or a wound please see a physician immediately.
Please also use compression stockings and elevate your leg to help with the swelling
We would like for you to follow up with your primary care physician for further evaluation. If you experience fever, worsening of your symptoms, or develop any other new or concerning symptoms, please return to the Emergency Department immediately.
Please see the attached sheet for additional information.
Interventions
Interventions:
*Risk Screen - Suicide Last Done: 11/22/24 16:54
*General Assessment Last Done: 11/22/24 16:54
*Neglect/Abuse Screening Last Done: 11/22/24 16:54
*ED COVID-19 Vaccine History Last Done: 11/22/24 16:54
*Nursing Disposition Last Done: 11/22/24 21:03
ED-Skin Assessment Last Done: 11/22/24 18:53
Discharge Date and Time
Print Language: JAPANESE
[2024-11-22 19:38] LABS: % Basophils 0.5 % (0-2); % Eosinophils 5.2 % (0-6); % Immature Granulocytes 0.3 % (0-0.5); % Lymphocytes 30.4 % (20.5-51.1); % Neutrophils 56.6 % (42.2-75.2); Absolute Basophils 0.1 10^3/uL (0-0.2); Absolute Eosinophils 0.5 10^3/uL (0-0.7); Absolute Lymphocytes 3.1 10^3/uL (1.2-3.4); Absolute Monocytes 0.7 10^3/uL (0.1-0.6); Absolute Neutrophils 5.8 10^3/uL (1.4-6.5); Hematocrit 42.8 % (37.0-47.0); Hemoglobin 14.3 g/dL (12.0-16.0); Mean Corp Hgb Conc. 33.4 g/dL (33.0-37.0); Mean Corpuscular Hgb 29.5 pg (27.0-31.0); Mean Corpuscular Volume 88.4 fL (81.0-99.0); Mean Platelet Volume 9.5 fL (7.4-10.4); Nucleated Red Blood Cells % 0 %; Platelet Count 328 10^3/uL (130-400); Red Blood Cell Count 4.84 10^6/uL (4.20-5.40); Red Cell Dist. Width 13.3 % (11.5-14.5); White Blood Cell Count 10.3 10^3/uL (4.8-10.8)
[2024-11-22 19:51] LABS: ALT (SGPT) 32 U/L (0-35); AST (SGOT) 23 U/L (14-36); Albumin 4.5 g/dl (3.5-5.0); Alkaline Phosphatase 137 U/L (38-126); Blood Urea Nitrogen 11 mg/dl (7-17); Calcium 9.9 mg/dl (8.4-10.2); Carbon Dioxide 25 mmol/L (22-30); Chloride 104 mmol/L (98-107); Glucose 196 mg/dl (70-99); Potassium 4.2 mmol/L (3.5-5.1); Sodium 140 mmol/L (135-145); Total Bilirubin 0.7 mg/dl (0.2-1.3); Total Protein 7.5 g/dl (6.3-8.2); eGFR > 60.00
[2024-11-22 20:00] LABS: NT-proBNP 52.8 pg/ml
== END 2024-11-22 22:09 | disposition home or self-care (01) ==
LOC: EMR 16:50
PROVIDERS: EMERGENCY PHYSICIAN Student in an Organized Health Care Education/Training Program; FAMILY PHYSICIAN Physician Assistant Medical
DX: R22.42 Localized swelling, mass and lump, left lower limb (principal); F17.200 Nicotine dependence, unspecified, uncomplicated
CPT/HCPCS: 99285; 80053; 83880; 85025; 93971